=== PATIENT | male | born 1990 | race Caucasian/White ===

== ENCOUNTER 2018-01-24 20:53 | Emergency (ER) | payer OTHER, SELFPAY ==
[2018-01-24 20:55] VITALS: BP 133/80; PULSE 115; RESP 14; TEMP 36.7; O2SAT 98; BMI 27.9
--- NOTE | 2018-01-24 21:04 | EKG12_ITS ---
Test Reason : Blood Pressure : / mmHG Vent. Rate : 107 BPM Atrial Rate : 107 BPM P-R Int : 124 ms QRS Dur : 102 ms QT Int : 338 ms P-R-T Axes : 048 078 026 degrees QTc Int : 451 ms Sinus tachycardia Incomplete right bundle branch block Borderline ECG Confirmed by HOMER MAYS, JUAN ([id number]), food editor VALERIA AYALA ([id number]) on 01/25/2018 10:03:20 AM Referred By: ANDRÉS Confirmed By:JUAN CORONEL MD
--- NOTE | 2018-01-24 21:06 | ED.RN ---
NO OLD EKGS IN MUSE
[2018-01-24] MEDS: 0.9% Normal Saline 1,000 ML 999 ML IV (21:08)
[2018-01-24 21:14] LABS: Absolute Lymphocyte Count 2.53 X10^3/ul (0.83-4.51); Absolute Neutrophil Count 7.3 X10^3/uL (2.0-7.7); Basophil# 0.04 X10^3/uL; Basophil% 0.4 % (0-1); Eosinophil# 0.15 X10^3/uL; Eosinophils% 1.4 % (0-5); Hematocrit 45.6 % (40-54); Hemoglobin 16.5 g/dl (13.0-16.5); Lymphocyte # 2.53 X10^3/ul (4.0); Lymphocyte % 22.8 % (19-41); Mean Corp Hgb Conc 36.2 g/gl (32-36); Mean Corpuscular Hgb 30.4 pg (27.0-32.0); Mean Corpuscular Volume 84.1 fL (80-94); Monocyte# 1.01 X10^3/uL; Monocyte% 9.1 % (0-10); Neutrophil # 7.34 X10^3/uL (2.7-7.7); Neutrophil % 66.2 % (47-70); POSITIVE COUNT NO; POSITIVE DIFFERENTIAL NO; POSITIVE MORPHOLOGY NO; Platelet Count 263 K/mm3 (150-450); RBC Distribution Width CV 12.5 % (11.6-14.6); RBC Distribution Width SD 38.4 fl (35.1-43.9); Red Blood Count 5.42 M/mm3 (4.6-6.2); White Blood Count 11.1 K/mm3 (4.4-11.0)
[2018-01-24 21:23] VITALS: BP 145/99; PULSE 95
[2018-01-24 21:28] LABS: Anion Gap 7 (5-15); BUN 16 mg/dL (7-18); BUN/Creat Ratio 13.4 RATIO (10-20); Calcium,Total 9.3 mg/dL (8.5-10.1); Chloride 104 mmol/L (98-107); Creatinine, Serum 1.19 mg/dL (0.70-1.30); EST Glomerular Filtration Rate 78 mL/min (>60); Est Glom Filt Rate - Afr Amer 94 mL/min (>60); Estimated Creatinine Clearance 87.18 ml/min; Glucose 92 mg/dL (74-106); Potassium 3.3 mmol/L (3.5-5.1); Sodium Level 138 mmol/L (136-145)
--- NOTE | 2018-01-24 21:39 | ED.VISSUMM ---
- ER Visit Summary Date of Service: 01/24/18 Chief Complaint: Dizziness History of Present Illness: The patient is a 27 M presenting for evaluation secondary to an episode of dizziness. 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 He reports that he was heavily exerting himself moving some hoses around from room to room. Patient states that since he was a kid he has had issues with having vomiting episodes with severe exertion. He reports that he started to feel nauseous and vomited 4 times. He reports that he did not have any blood or bile in his emesis. Patient states that following that he started to feel as if his heart was racing and was noted to have a heart rate in the 130s. He states that it was associated with a feeling of lightheadedness. He denies that there is any sort of chest pain. Patient denies any personal or family history of cardiac arrhythmias. He denies any history of stimulant use he drinks 2 cups of coffee in the morning has not had anything for over 12 hours. He denies any recent infectious signs or symptoms. Review of systems otherwise negative. Physical Examination: Vital signs are within normal limits, patient is afebrile. General: Patient is well-nourished well-developed and in no acute distress. Head: Normocephalic, atraumatic Eyes: Pupils equal round and reactive bilaterally, extra occular motion intact bialterally ENT: Moist mucous membranes Neck: Supple, no lymphadenopathy, no JVD, no meningismus CVS: Heart regular rate and rhythm, no murmurs, rubs or gallops, radial pulses 2+ bilaterally Resp: Respirations nondistressed, lung sounds clear bilaterally Abdomen: Soft, nontender, nondistended, no palpable masses, normal bowel sounds Back: Nontender Extremities: Nontender, atraumatic, active full range of motion, no peripheral edema Skin: warm, no rashes, no petechia Neuro: Alert and oriented x 4, CN 2-12 intact, no lateralizing neurological defecits Psyc: Normal affect Test Results: EKG shows sinus rhythm of 107 with normal NE and QTc intervals, no evidence of WPW or Brugada morphology. There is evidence of a incomplete right bundle branch block and no evidence of acute ST or T-segment changes. See unremarkable, chemistry shows very mild decreased potassium 3.3 troponin negative. Emergency Department Course and Treatment: Patient presented with what sounded like a presyncopal event following vomiting. Patient's workup is negative as noted above. His EKG is completely normal. At this point I believe the patient likely had a vagal response to his forceful vomiting. Patient's EKG did demonstrate evidence of an incomplete right bundle branch block which can be normal and healthy young individuals. he does not seem to have any sort of cardiac etiologies or electrolyte etiologies that would preclude him from continuing to participate in his training program. Patient was cleared for return to work. Disposition: Discharge Impression: Presyncope secondary to vagal event This note was generated with [employer] dictation software. It may contain incorrect words, spelling, and punctuation that were not noted in review of the chart prior to signing ED Disposition - Plan for ED Patient: Disposition: Home or Assisted Living Chief Complaint: Dizziness Diagnosis: Pre-syncope Instructions: ED Near Syncope Vasovagal Referrals: [facility] [GROUP OF PHYSICIANS] - As Needed
--- NOTE | 2018-01-24 21:43 | ED.DCSUM_ITS ---
- ER Visit Summary Date of Service: 01/24/18 Chief Complaint: Dizziness History of Present Illness: The patient is a 27 M presenting for evaluation secondary to an episode of dizziness. 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 He reports that he was heavily exerting himself moving some hoses around from room to room. Patient states that since he was a kid he has had issues with having vomiting episodes with severe exertion. He reports that he started to feel nauseous and vomited 4 times. He reports that he did not have any blood or bile in his emesis. Patient states that following that he started to feel as if his heart was racing and was noted to have a heart rate in the 130s. He states that it was associated with a feeling of lightheadedness. He denies that there is any sort of chest pain. Patient denies any personal or family history of cardiac arrhythmias. He denies any history of stimulant use he drinks 2 cups of coffee in the morning has not had anything for over 12 hours. He denies any recent infectious signs or symptoms. Review of systems otherwise negative. Physical Examination: Vital signs are within normal limits, patient is afebrile. General: Patient is well-nourished well-developed and in no acute distress. Head: Normocephalic, atraumatic Eyes: Pupils equal round and reactive bilaterally, extra occular motion intact bialterally ENT: Moist mucous membranes Neck: Supple, no lymphadenopathy, no JVD, no meningismus CVS: Heart regular rate and rhythm, no murmurs, rubs or gallops, radial pulses 2+ bilaterally Resp: Respirations nondistressed, lung sounds clear bilaterally Abdomen: Soft, nontender, nondistended, no palpable masses, normal bowel sounds Back: Nontender Extremities: Nontender, atraumatic, active full range of motion, no peripheral edema Skin: warm, no rashes, no petechia Neuro: Alert and oriented x 4, CN 2-12 intact, no lateralizing neurological defecits Psyc: Normal affect Test Results: EKG shows sinus rhythm of 107 with normal [place] and QTc intervals, no evidence of WPW or Brugada morphology. There is evidence of a incomplete right bundle branch block and no evidence of acute ST or T-segment changes. See unremarkable, chemistry shows very mild decreased potassium 3.3 troponin negative. Emergency Department Course and Treatment: Patient presented with what sounded like a presyncopal event following vomiting. Patient's workup is negative as noted above. His EKG is completely normal. At this point I believe the patient likely had a vagal response to his forceful vomiting. Patient's EKG did demonstrate evidence of an incomplete right bundle branch block which can be normal and healthy young individuals. he does not seem to have any sort of cardiac etiologies or electrolyte etiologies that would preclude him from continuing to participate in his training program. Patient was cleared for return to work. Disposition: Discharge Impression: Presyncope secondary to vagal event This note was generated with [employer] dictation software. It may contain incorrect words, spelling, and punctuation that were not noted in review of the chart prior to signing ED Disposition - Plan for ED Patient: Disposition: Home or Assisted Living Chief Complaint: Dizziness Diagnosis: Pre-syncope Instructions: ED Near Syncope Vasovagal Referrals: [facility] [GROUP OF PHYSICIANS] - As Needed
[2018-01-24 21:55] VITALS: BP 131/74; PULSE 94; RESP 16; O2SAT 98
== END 2018-01-24 21:59 | disposition home or self-care (01) ==
PROVIDERS: Emergency Provider Emergency Medicine
DX: R55 Syncope and collapse (principal)
CPT/HCPCS: 80048; 84484; 85025; 93005; 96360; 99284; J7030; A4216

== ENCOUNTER 2019-06-30 07:00 | Outpatient (RCR) | payer OTHER, SELFPAY ==
--- NOTE | 2019-04-12 14:56 | HP.PTEVAL_ITS ---
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 Date of Evaluation: 04/12/19 Physical Therapist: Juan Hernandez, DPT, OCS, CSCS - Visit Plan Frequency: 1-2x /Week Duration: 4 Months Plan: 1-2x/week for up to 3-4 months as needed to progress per protocol. AAROM to aROM until April then strength progression per protocol - Subjective Findings: Posterior labrum repair surgery by [facility] on 03/02/19. Had trouble with it for 2.5 years due to injuries over the years. Dove for a ball in softball 3 years ago and injured it . Putting off surgery until last February. Surgery went well. In sling with abd wedge except some times walking at home. No exercises yet. Saw doctor yesterdaya nd can start PT. Will be out of sling 04/27 19. Currently no sudden sharp movements or heavy lifting. Sleep is not easy in sling, looking forward to the . Pain is none. no pain since surgery. Sore or stiff with movement. 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 Basic ADLs at home require help, bathing and getting spots on back is challenging, not cooking, not wash dishes. dresses self and bathroom self. Enjoys hunting and shooting guns and four wheelers. Spends day currently hanging out with girlfriend. - Objective PROM R shoulder flexion 125, abd 120, ext rotation 60, IR at 90 abd 60. AROM shoulder R not tested. L shoulder flexiona dna bd 165 adn ext rot 90 and IR 90 at 90 abd. Posture is slightly forward head and elevated R scapula. Incisions healed well. Scapula ROM is full B without pain. Full elbow AROM B. Full wrist ROM B. Good squeeze strength B. Trasnfers and walks I, dons and doffs sling I. - Goals Goal 1:: ST: Full AROM R shoulder per protocol without pain Goal Time Frame: 4-6 Weeks Goal 2:: Initiate strength ex per protocol for R shoulder without incidient Goal Time Frame: 4-6 Weeks Goal 3:: LT goals: Dress and cooka t home without pain or problems Goal Time Frame: 8-12 Weeks Goal 4:: Plan to return to work without limitations. Goal Time Frame: 12-16 Weeks - Rehabilitation Potential Physical Therapy Diagnosis: Weak and limited ROM post surgery. Rehabilitation Potential: Good - Anticipated Interventions Patient/Client Instruction: Educate patient on: Condition, Plan of Care For the Purpose of:: To decrease pain, To increase ROM, To improve muscle performance and motor function, To increase tolerance to activity/condition/position, To improve ability of physical actions for home/community/work/leisure Therapeutic Exercise to Include: Strength training, Postural training, Flexibilty training, Passive ROM, Active ROM For the Purpose of:: To increase ROM, To improve muscle performance and motor function, To increase tolerance to activity/condition/position, To improve ability of physical actions for home/community/work/leisure Manual Therapy Techniques to Include: Passive ROM For the Purpose of:: To increase ROM Cryotherapy (ice pack, ice massage): Yes For the Purpose of:: To decrease pain, To decrease swelling/inflammation Thank you for the opportunity to evaluate your patient. For Medicare and Medicare HMO plans, please review the plan of care and approve it. It will need to be FAXED BACK to us at [phone] for Medicare purposes. For Medicare only, by signing this I certify the plan of care. Please let me know if there are questions or concerns regarding this plan of care. Physician Signature: Date:
--- NOTE | 2019-05-09 13:45 | HP.PTREVAL ---
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 Please see the progress note below for an update on the physical therapy plan of care! Subjective: Stiff and sore a little more at the end range. No other pain. To doctor next week. Objective/Function: Full aROM flexion,abd, ext rot, IR with just slight transient tightness at end range. Horiz add appropriately limited. Weakness obvious in flexiona dn abduction but no pain with exercises. Overall doing wella nd emphasized slow progression without soreness. Plan Plan: f/u after doctor visit next week. Progress to GTB if able and OH stabs in mid range. Plan weekly to continue progression of HEP per initial POC unless otherwise instructed by doctor. Goals Goal 1:: ST: Full AROM R shoulder per protocol without pain Goal Time Frame: 4-6 Weeks Goal Progress: Progressing Goal 2:: Initiate strength ex per protocol for R shoulder without incidient Goal Time Frame: 4-6 Weeks Goal 3:: LT goals: Dress and cooka t home without pain or problems Goal Time Frame: 8-12 Weeks Goal 4:: Plan to return to work without limitations. Goal Time Frame: 12-16 Weeks Anticipated Interventions Patient/Client Instruction: Educate patient on: Condition, Plan of Care For the Purpose of:: To decrease pain, To increase ROM, To improve muscle performance and motor function, To increase tolerance to activity/condition/position, To improve ability of physical actions for home/community/work/leisure Therapeutic Exercise to Include: Strength training, Postural training, Flexibilty training, Passive ROM, Active ROM For the Purpose of:: To increase ROM, To improve muscle performance and motor function, To increase tolerance to activity/condition/position, To improve ability of physical actions for home/community/work/leisure Manual Therapy Techniques to Include: Passive ROM For the Purpose of:: To increase ROM Cryotherapy (ice pack, ice massage): Yes For the Purpose of:: To decrease pain, To decrease swelling/inflammation Please do not hesitate to contact me at [phone] by phone or if you have questions or concerns regarding this new plan of care! Sincerely, Juan Hernandez, DPT, OCS, CSCS
--- NOTE | 2019-06-01 12:48 | HP.PTREVAL ---
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 Please see the progress note below for an update on the physical therapy plan of care! 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 HEP going well. Objective/Function: Full aROM including horiz adduction today although it feels tight. Full flexion and rotations. Strength in IR/ER 5/5, bi and tri 5/5, flexiona dn abduction 4+/5 R side.No pain. 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 check flexion and abduction for release next sessiona nd answer any ex questions. Good prognosis Goals Goal 1:: ST: Full AROM R shoulder per protocol without pain Goal Time Frame: 4-6 Weeks Goal Progress: Goal Met Goal 2:: Initiate strength ex per protocol for R shoulder without incidient Goal Time Frame: 4-6 Weeks Goal Progress: Goal Met Goal 3:: LT goals: Dress and cooka t home without pain or problems Goal Time Frame: 8-12 Weeks Goal Progress: Goal Met Goal 4:: Plan to return to work without limitations. Goal Time Frame: 12-16 Weeks Goal Progress: on target, appropriate. Anticipated Interventions Patient/Client Instruction: Educate patient on: Condition, Plan of Care For the Purpose of:: To decrease pain, To increase ROM, To improve muscle performance and motor function, To increase tolerance to activity/condition/position, To improve ability of physical actions for home/community/work/leisure Therapeutic Exercise to Include: Strength training, Postural training, Flexibilty training, Passive ROM, Active ROM For the Purpose of:: To increase ROM, To improve muscle performance and motor function, To increase tolerance to activity/condition/position, To improve ability of physical actions for home/community/work/leisure Manual Therapy Techniques to Include: Passive ROM For the Purpose of:: To increase ROM Cryotherapy (ice pack, ice massage): Yes For the Purpose of:: To decrease pain, To decrease swelling/inflammation Please do not hesitate to contact me at [phone] by phone or if you have questions or concerns regarding this new plan of care! Sincerely, Juan Hernandez, DPT, OCS, CSCS
--- NOTE | 2019-06-30 07:30 | HP.PTDCSUM ---
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 Discharge Date: Please see the following information for a summary of their discharge status. Subjective: Strength is improving. 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 Sleeping OK. Normal activities at home. 90% better at home, 10% is strength. Picking kids up still at deficit slightly. % Improvement: 90 Objective/Function: Full aROM R shoulder. Strength 5/5 in R shouulder except elevated ext rotation at 4+. Push ups easily. No pain or cracking. Pt happy with progress adn ready to be done with PT and continue strengthening at home. Goal 1:: ST: Full AROM R shoulder per protocol without pain Goal Progress: Goal Met Goal 2:: Initiate strength ex per protocol for R shoulder without incidient Goal Progress: Goal Met Goal 3:: LT goals: Dress and cooka t home without pain or problems Goal Progress: Goal Met Goal 4:: Plan to return to work without limitations. 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 If there are questions or concerns regarding this patient's physical therapy, please feel free to call me at [phone]. Thank you for the referral of this patient. Sincerely, Juan Hernandez, DPT, OCS, CSCS
== END 2019-06-30 19:00 | disposition home or self-care (01) ==
LOC: PT 07:00
DX: M25.311 Other instability, right shoulder (principal)
CPT/HCPCS: 97110; 97161; 97164; 97530

== ENCOUNTER 2020-01-13 16:45 | Emergency (ER) | payer OTHER, SELFPAY ==
[2020-01-13 16:46] VITALS: BP 148/90; PULSE 99; RESP 18; TEMP 36.2; O2SAT 99; BMI 29.0
--- NOTE | 2020-01-13 16:53 | CT_ITS ---
STUDY: CT BRAIN WITHOUT CONTRAST REASON FOR EXAM: Male, 29 years old. HEAD TRAUMA RADIATION DOSAGE (If Supplied By Facility): CTDIvol = ( 44.99 ) mGy, DLP = ( 779.24 ) mGycm TECHNIQUE: Transaxial CT imaging of the brain was performed without administration of intravenous contrast material. Individualized dose optimization techniques were used for this CT. COMPARISON: No relevant priors. FINDINGS: Normal soft tissue structures. Normal calvarium. Normal size ventricles and extra-axial spaces for the patient''s age. Normal white matter tracts of the cerebral hemispheres. Normal basal ganglia and thalami. Normal brainstem. Normal cerebellum. There is no intracranial hemorrhage. There are no findings of an acute ischemic infarction. Normal visualized paranasal sinuses. CT/Brain/Head without Contrast IMPRESSION: No fracture or hemorrhage. Electronically Signed: Joey Prater MD at 17:24 EDT Tel , Service support ,
--- NOTE | 2020-01-13 17:28 | ED.DCSUM_ITS ---
- ER Visit Summary Date of Service: 01/13/20 Chief Complaint: [Head injury] History of Present Illness: The patient is a 29 M [presents to the emergency department with a head injury that occurred today. Patient states that he was using a post bobcat driver/labor when he accidentally struck himself in the head with it. Patient denies loss of consciousness. Patient did have some blurry vision and some nausea initially. Currently complains of a significant headache. He has had no vomiting. He denies any dizziness. Patient unsure of his last tetanus. He did sustain laceration to his scalp.] Physical Examination: [HEENT-PERRLA, EOMI. Cranial nerves II through XII grossly intact. TMs clear. Mucous membranes moist. No adenopathy. Patient has a 3 cm laceration to the posterior occiput that is well approximated. No bony step-offs noted. No C-spine tenderness on palpation. Cardiovascular-regular rate and rhythm without murmur or ectopy Lungs-clear to auscultation, chest wall stable without crepitus or subcu emphysema Abdomen-normoactive bowel sounds, soft, nontender, no rebound or rigidity, no peritoneal signs. Extremities-intact ?4, normal range of motion, normal pulses, atraumatic] Test Results: [CT scan of the brain showed no acute disease process.] Emergency Department Course and Treatment: [Laceration repair-wound sterilely draped and prepped. Wound cleansed with Shur-Clens irrigated copious saline. 1% lidocaine used anesthetize the area locally with a total of 5 cc used. Using 4-0 nylon a total of 3 single ruptured sutures placed with good wound edge approximation. Patient tolerated procedure well.] Treatment Plan: [Follow-up with primary care physician in 10 days for suture removal. Patient advised to return if increased redness, swelling, purulent drainage, or condition should worsen anyway.] Disposition: [Discharged home stable condition] Impression: [Closed head injury Scalp laceration 3 cm-simple repair] This note was generated with [employer] dictation software. It may contain incorrect words, spelling, and punctuation that were not noted in review of the chart prior to signing ED Disposition - Plan for ED Patient: Referrals: Obi Rodriguez MD [Primary Care Provider] -
--- NOTE | 2020-01-13 17:30 | DCINST.ED_ITS ---
ED Disposition - Plan for ED Patient: Instructions: ED Head Injury Adult, ED Laceration Scalp Sutures or [place] Referrals: Obi Rodriguez MD [Primary Care Provider] - 10 Day for suture removal
[2020-01-13] MEDS: Diphth,Pertuss(Acell),Tet Vac 0.5 ML Vial IM (18:00)
[2020-01-13 18:08] VITALS: RESP 16
== END 2020-01-13 18:26 | disposition home or self-care (01) ==
PROVIDERS: Emergency Provider Emergency Medicine; PCP Family Medicine
DX: S01.01XA Laceration without foreign body of scalp, initial encounter (principal); Z72.0 Tobacco use; W26.8XXA Contact with other sharp object(s), not elsewhere classified, initial encounter; Y93.89 Activity, other specified; Y92.89 Other specified places as the place of occurrence of the external cause; Y99.8 Other external cause status
CPT/HCPCS: 12002; 70450; 90715; 99281; 99284

== ENCOUNTER 2020-10-03 06:10 | Emergency (ER) | payer OTHER, SELFPAY ==
[2020-10-03 06:11] VITALS: BP 131/78; PULSE 121; RESP 13; TEMP 36.6; O2SAT 99; BMI 27.0
--- NOTE | 2020-10-03 06:19 | EKG12_ITS ---
Test Reason : CP Blood Pressure : / mmHG Vent. Rate : 122 BPM Atrial Rate : 122 BPM P-R Int : 120 ms QRS Dur : 092 ms QT Int : 318 ms P-R-T Axes : 060 092 023 degrees QTc Int : 453 ms Sinus tachycardia Otherwise normal ECG When compared with ECG of 24-JAN-2018 21:02, Incomplete right bundle branch block is no longer Present Confirmed by ZACH MAYS, KIRK ([id number]), school photograph editor GIDEON PACKER ([id number]) on 10/11/2020 9:44:37 AM Referred By: MR Confirmed By:KIRK ESRRANO MD
[2020-10-03 06:23] LABS: Absolute Lymphocyte Count 2.71 X10^3/uL (0.83-4.51); Absolute Neutrophil Count 4.9 X10^3/uL (2.0-7.7); Basophil# 0.07 X10^3/uL; Basophil% 0.8 % (0-1); Eosinophil# 0.34 X10^3/uL; Eosinophils% 3.8 % (0-5); Hematocrit 49.5 % (40-54); Hemoglobin 17.2 g/dL (13.0-16.5); Lymphocyte # 2.71 X10^3/ul (0.83-4.51); Mean Corp Hgb Conc 34.7 g/dL (32-36); Mean Corpuscular Hgb 30.4 pg (27.0-32.0); Mean Corpuscular Volume 87.6 fL (80-94); Mean Platelet Vol. 8.6 fl (6.2-12.0); Monocyte# 0.99 X10^3/uL; NRBC Flagged by Analyzer 0 % (0-5); Neutrophil % 54.2 % (47-70); Platelet Count 273 K/mm3 (150-450); RBC Distribution Width CV 11.9 % (11.6-14.6); RBC Distribution Width SD 38.5 fl (35.1-43.9); Red Blood Count 5.65 M/mm3 (4.6-6.2)
--- NOTE | 2020-10-03 06:32 | EDS_ITS ---
HPI History of Present Illness Chief Complaint: Palpitations Narrative Narrative: Patient presenting for evaluation secondary to palpitations. Patient does report that he has had prior similar episodes in the past. Patient states that tonight he was at rest and had a sudden onset of palpitations. States that this lasted for around an hour and a half and then spontaneously resolved. Patient states that there were no exacerbating relieving factors associated with this, it was a continuous type palpitation feeling with a little bit of chest pain and tingling going down his arms. It was also associated with a headache. Patient states that he is never really had a complete work-up for this. Patient does report that he has a significant amount of caffeine in a day, typically drinks about a pot of coffee but his last caffeine was around 12 hours ago. He denies any other stimulant use. He denies any abnormal weight change changes in appetite or heat or cold intolerance. No neck pain associated with this. No recent travel or surgery. No history of DVT or PE. Review of systems otherwise negative. [facility] Medical History Labral tear of shoulder Home Medications acyclovir 400 mg PO BID 01/13/20 [History Last Taken Unknown] Allergy/AdvReac Type Severity Reaction Status Date / Time No Known Allergies Allergy Verified 10/03/20 06:13 Social History Smoking Status: Current every day smoker tobacco type: cigarettes and smokeless tobacco ROS ROS ED Constitutional Constitutional ED: Denies fever(s) Eyes Eyes: Denies change in vision ENT ENT ED: Denies rhinorrhea or sore throat Cardiovascular Cardiovascular: Reports as per HPI, chest pain and palpitations Respiratory/Chest Respiratory/Chest: Denies cough, dyspnea or dyspnea on exertion Gastrointestinal Gastrointestinal: Denies abdominal pain, nausea or vomiting Genitourinary Genitourinary ED: Denies dysuria Musculoskeletal Musculoskeletal: Denies myalgias or neck pain Integumentary Denies rash Neurologic Neurologic: Denies headache(s), paresthesias or weakness Psychiatric Psychiatric: Denies depression Endocrine Endocrinology: Denies polydipsia or polyuria Hematologic/Lymphatic Hematologic/Lymphatic: Denies easy bleeding or easy bruising Allergic/Immunologic Allergic/Immunologic ED: Denies urticaria EXAM Physical Exam Const Vital Signs: 10/03/20 06:11 10/03/20 06:21 Temperature 97.8 F Temperature Source Temporal Pulse Rate 121 H Respiratory Rate 13 Blood Pressure 131/78 H Blood Pressure Mean 95 Pulse Ox 99 Oxygen Delivery Method Room Air Positive well nourished and well developed General Appearance ED: well developed and NAD HEENT Reports moist mucous membranes HEENT Narrative: Thyroid is nontender no palpable masses normocephalic and atraumatic Eyes EOMs intact bilaterally Neck no lymphadenopathy, supple and no JVD Chest Wall inspection of chest normal and palpation of chest normal Chest Narrative: No evidence of vesicular rash Resp normal respiratory effort and clear to auscultation bilaterally Auscultation: Negative for rales, rhonchi or wheezes Cardio regular rhythm, S1 normal heart sound, S2 normal heart sound and no murmurs Rate: tachycardic Peripheral Pulses: radial pulses present and posterior tibial pulses present GI normal to inspection, nondistended, normoactive bowel sounds, soft to palpation and non-tender Extremity normal to inspection Extremity Narrative: Calves are supple no palpable cord General Extremety ED: Negative for edema or tenderness General Extremity: Negative for edema Neuro oriented x3 and no sensory deficits noted Sensorium / Orientation: awake and alert Psych mental status grossly normal Skin no rashes or lesions noted MDM MDM MDM Narrative Medical decision making narrative: Patient presented secondary to palpitations. By my review of the patient's rhythm strip I think that he likely was having paroxysmal atrial fibrillation, but he was in a sinus rhythm his entire time in the emergency department. Work-up shows the patient to have no leukocytosis mild elevation of his hemoglobin at 17 normal renal function normal TSH and a normal troponin and a normal magnesium. Patient remained asymptomatic in the emergency department. I discussed patient's case with cardiology, Dr. Munoz, who recommended discharge with a Holter monitor and follow-up with cardiology. Patient was informed of this. Patient does drink a decent amount of caffeine, I recommended that he start trying to decrease that as that may be a precipitating factor to his arrhythmia. Patient was discharged in stable condition. Additionally the patient did tell me that these episodes typically happen upon awakening. I asked the patient significant other if he has a history of snoring, and she does state that he has severe snoring. This potentially could even be associated with an element of hypoxia from sleep apnea that precipitates his paroxysmal atrial fibrillation. I informed him that he likely should tell cardiology about this when he follows up. Lab Data Labs: Laboratory Results - last 24 hr 10/03/20 10/03/20 06:18 06:18 WBC 9.0 RBC 5.65 Hgb 17.2 H Hct 49.5 MCV 87.6 MCH 30.4 MCHC 34.7 RDW Std Deviation 38.5 RDW Coeff of Anny 11.9 Plt Count 273 MPV 8.6 Immature Gran % (Auto) 0.200 Neut % (Auto) 54.2 Lymph % (Auto) 30.0 [place] % (Auto) 11.0 H Eos % (Auto) 3.8 Baso % (Auto) 0.8 Absolute Neuts (auto) 4.9 Absolute Lymphs (auto) 2.71 Nucleated RBC % 0 Sodium 141 Potassium 3.5 Chloride 105 Carbon Dioxide 30.0 Anion Gap 6 BUN 11 Creatinine 1.04 Estim Creat Clear Calc 101.39 Est GFR (MDRD) Af Amer 108 Est GFR (MDRD) Non-Af 89 BUN/Creatinine Ratio 10.6 Glucose 103 Calcium 9.1 Magnesium 2.1 Troponin I High Sens < 3.0 L TSH 2.32 Rhythm Strip Rhythm Strip: A-fib (Narrow complex slightly irregular rate of 183) EKG Initial EKG: Attestation: I personally reviewed and interpreted this EKG as follows: (Sinus rhythm of 122, tachycardic, normal IN and QTc intervals isoelectric ST segments normal T waves.) Discharge Plan Triage Chief Complaint: Palpitations ED Provider: Kelechi Presley Dx/Rx/DC Orders Clinical Impression: Paroxysmal A-fib Instructions: ED AFIB Prescriptions: No Action acyclovir 200 MG capsule 400 mg PO BID RF: 0 Primary Care Provider: Obi Rodriguez Referrals: Enrique Munson MD [STAFF PHYSICIAN] - 2 Days Obi Rodriguez MD [Primary Care Provider] - Disposition Disposition: Home, Self Care
[2020-10-03 06:53] LABS: Anion Gap 6 (5-15); BUN 11 mg/dL (7-18); BUN/Creat Ratio 10.6 RATIO (10-20); Calcium,Total 9.1 mg/dL (8.5-10.1); Chloride 105 mmol/L (98-107); Creatinine, Serum 1.04 mg/dL (0.70-1.30); EST Glomerular Filtration Rate 89 mL/min (>60); Est Glom Filt Rate - Afr Amer 108 mL/min (>60); Estimated Creatinine Clearance 101.39 ml/min; Glucose 103 mg/dL (74-106); Magnesium 2.1 mg/dL (1.6-2.6); Potassium 3.5 mmol/L (3.5-5.1); Sodium Level 141 mmol/L (136-145); Thyroid Stim Hormone (TSH) 2.32 uIU/mL (0.358-3.74); Troponin-I HS < 3.0 pg/mL (3.0-78.5)
[2020-10-03 07:37] VITALS: BP 114/62; PULSE 85; RESP 15; O2SAT 100
== END 2020-10-03 07:39 | disposition home or self-care (01) ==
PROVIDERS: Emergency Provider Emergency Medicine; PCP Family Medicine
DX: I48.0 Paroxysmal atrial fibrillation (principal); F17.210 Nicotine dependence, cigarettes, uncomplicated
CPT/HCPCS: 80048; 83735; 84443; 84484; 85025; 93005; 99284; A4216

== ENCOUNTER → 2020-10-03 07:49 | Outpatient (CLI) | payer OTHER, SELFPAY ==
[2020-10-03 06:11] VITALS: BMI 27.0
== END ==
PROVIDERS: PCP Family Medicine; Visit Provider Internal Medicine Interventional Cardiology
DX: R00.2 Palpitations (principal)
CPT/HCPCS: 93225; 93226

== ENCOUNTER → 2020-10-17 12:56 | Outpatient (CLI) | payer OTHER, SELFPAY ==
[2020-10-09 12:41] VITALS: BMI 24.9
--- NOTE | 2020-10-17 13:02 | ECHOD_ITS ---
Reason For Study: A. fib Procedure This was a 2D Doppler, Color Flow transthoracic echocardiogram. Exam performed in department. Left Ventricle Normal LV size. Left ventricular systolic function is normal. The estimated ejection fraction is 60 %. Normal diastology for age. No regional wall motion abnormalities noted. Right Ventricle Normal RV size. Normal systolic function. Atria Normal left atrium. Normal right atrium. Mitral Valve Normal mitral valve. Tricuspid Valve Normal tricuspid valve. Mild tricuspid valve insufficiency. Aortic Valve Normal aortic valve. Trisinus/trileaflet aortic valve. Pulmonic Valve Normal pulmonic valve. Great Vessels Normal aortic root. The pulmonary artery is normal size. Normal inferior vena cava. Pericardium/Pleural No pericardial effusion. MMode/2D Measurements & Calculations LVIDd: 4.6 cm IVSd: 0.83 cm Ao root diam: 2.9 cm LVIDs: 3.1 cm LVPWd: 0.88 cm RVDd: 3.5 cm FS: 32.8 % LAV(MOD-bp): 36.4 ml LVAd ap4: 31.4 cm2 LVAd ap2: 33.0 cm2 LAV(MOD-bp) Indexed: 19.3 ml/m2 LVLd ap4: 8.6 cm LVLd ap2: 8.4 cm LAV(MOD-sp2): 38.3 ml EDV(MOD-sp4): 93.3 ml EDV(MOD-sp2): 106.9 ml LAV(MOD-sp4): 34.5 ml EDV(sp4-el): 96.8 ml EDV(sp2-el): 109.8 ml LVAs ap4: 18.0 cm2 LVAs ap2: 17.7 cm2 LVLs ap4: 6.9 cm LVLs ap2: 7.5 cm ESV(MOD-sp4): 38.8 ml ESV(MOD-sp2): 35.7 ml ESV(sp4-el): 39.8 ml ESV(sp2-el): 35.5 ml EF(MOD-sp4): 58.4 % EF(MOD-sp2): 66.6 % EF(sp4-el): 58.8 % SV(MOD-sp4): 54.5 ml SV(MOD-sp2): 71.2 ml SV(sp4-el): 57.0 ml LA dimension(2D): 2.9 cm LA A4 area: 13.8 cm2 RA A4 area: 13.7 cm2 Doppler Measurements & Calculations MV E max royce: 86.8 cm/sec Lat Peak E' Royce: 15.3 cm/sec Med Peak E' Royce: 15.8 cm/sec MV A max royce: 38.0 cm/sec E/E' lat: 5.7 E/E' med: 5.5 MV E/A: 2.3 Ao V2 max: 141.0 cm/sec LV V1 max: 113.8 cm/sec PA V2 max: 81.8 cm/sec Ao max P.0 mmHg LV V1 max P.2 mmHg TR max royce: 204.7 cm/sec TR max P.8 mmHg ECHO/Echo Complete Interpretation Summary Normal LV size. Left ventricular systolic function is normal. The estimated ejection fraction is 60 %. Mild tricuspid valve insufficiency. Structurally normal valves. Ordering Physician: Silas Elliott Referring Physician: Obi Rodriguez Performed By: Pretty Kraft RDCS
== END ==
PROVIDERS: PCP Family Medicine; Referring Provider Internal Medicine Cardiovascular Disease; Visit Provider Internal Medicine Cardiovascular Disease
DX: I48.91 Unspecified atrial fibrillation (principal); I48.92 Unspecified atrial flutter
CPT/HCPCS: 93306

== ENCOUNTER 2021-01-29 21:54 | Emergency (ER) | payer OTHER, SELFPAY ==
[2021-01-29 21:56] VITALS: BP 142/97; PULSE 82; RESP 16; TEMP 35.9; O2SAT 99; BMI 25.8
[2021-01-29 22:55] VITALS: RESP 16
[2021-01-29 23:00] VITALS: RESP 16
--- NOTE | 2021-01-29 23:52 | EDS_ITS ---
HPI HPI - Psych History of Present Illness Chief Complaint: Mental Health Informant: patient Onset/Context/Timing Onset: Month(s) Context: Sudden Onset Conflict: Family Timing: Continuous and Waxes and wanes Current Severity: Mild Maximum Severity: Severe Worsened by: Situational factors Relieved by: Nothing Associated Symptoms Associated Symptoms - Psych: Positive for Depressed, Change in Eating, Change in sleeping, Decreased Interest and Suicidal Thoughts; Negative for Guilt, Decreased Concentration, Hopelessness, Easily distracted, Grandiosity, Flight of Ideas, Increased activity, Pressured Speech, Agitated, Angry, Hostile, Threatening, Confusion, Paranoia, Visual Hallucinations and Auditory Hallucinations Specific plan (suicidal thought): No specific plan. When pressed states he would wreck his car or shoot hims Narrative Narrative: Patient is a 30-year-old male who has been engaged for 2 years. He and his fianc?e have a house together. She has 4 kids. He claims that his parents have taken her side. He works multiple jobs. He has had problems with alcohol use recently and admits to 6-8 beers per day. He does have access to a gun which is in a safe. A friend who has known him for some time and is a elevated work platform operator brought him in. He states he will give the gun to his friend. Another friend is willing to stay with him. He has no future intent. He states he is hit rock bottom and he knows he needs help. Last time he was in counseling was 2013. He is presently on no antipsychotic medication or antidepressant medication. He feels he has a history of depression and anxiety. He does have history of PSVT and atrial fibrillation. He has been compliant with his medication. He has had no problems at work as far as interaction or performance. He does admit to problems with sleep eating stress etc. Prior similar symptoms: Yes Recent Illness/Hospitalization: No PFSH PFS Medical History Atrial fibrillation with rapid ventricular response (10/03/20) Daytime hypersomnolence Incomplete right bundle branch block Labral tear of shoulder Nicotine dependence Home Medications acyclovir 400 mg PO BID 01/13/20 [History Last Taken Unknown] flecainide 100 mg tablet 100 mg PO Q12H #30 tab 10/09/20 [Rx Last Taken Unknown] metoprolol succinate 25 mg tablet,extended release 24 hr 25 mg PO DAILY #90 tab 10/09/20 [Rx Last Taken Unknown] paroxetine HCl [Paxil CR] 12.5 mg PO DAILY #30 tab 01/30/21 [Rx Last Taken Unknown] Allergy/AdvReac Type Severity Reaction Status Date / Time No Known Allergies Allergy Verified 01/21/21 12:22 Family History Grandmother Heart disease SSS PPM CAD (coronary artery disease), Onset Age: 50 CABG Grandfather CAD (coronary artery disease), Onset Age: 60 Social History (Updated 01/29/21 @ 23:[address] Maury Encarnacion MD) household members: none Smoking Status: Current every day smoker tobacco type: cigarettes and smokeless tobacco Smokeless tobacco user: chewing tobacco alcohol intake: current alcohol intake frequency: a few times a month Alcohol type: beer substance use type: does not use caffeine: Yes Type: coffee Number of servings: 10 ROS ROS ED Constitutional Constitutional ED: Reports weight loss; Denies chills, fever(s), subjective or sweats Eyes Eyes: Denies blurry vision, change in vision or diplopia ENT ENT ED: Denies ear pain, rhinorrhea or sore throat Cardiovascular Cardiovascular: Denies chest pain, palpitations or racing heartbeat Respiratory/Chest Respiratory/Chest: Denies cough, dyspnea or dyspnea on exertion Gastrointestinal Gastrointestinal: Reports nausea; Denies abdominal pain, diarrhea or vomiting Musculoskeletal Musculoskeletal: Denies arthralgias, myalgias or neck pain Integumentary Denies rash Neurologic Neurologic: Denies headache(s), paresthesias or weakness Psychiatric Psychiatric: Reports anxiety, depression, suicidal thoughts and other Details: Presently has no suicidal thoughts. ; Denies suicidal ideation Hematologic/Lymphatic Hematologic/Lymphatic: Denies easy bleeding or easy bruising EXAM Physical Exam Const Vital Signs: 01/29/21 21:56 01/29/21 22:55 01/29/21 23:00 Temperature 96.7 F L Temperature Source Temporal Pulse Rate 82 Respiratory Rate 16 16 16 Blood Pressure 142/97 H Blood Pressure Mean 112 Pulse Ox 99 Oxygen Delivery Method Room Air Positive well nourished and well developed General Appearance ED: well developed and NAD; Negative for pallor HEENT Reports moist mucous membranes normocephalic and atraumatic Eyes PERRL and EOMs intact bilaterally Neck no lymphadenopathy, supple and no JVD Resp normal respiratory effort and clear to auscultation bilaterally Cardio S1 normal heart sound, S2 normal heart sound and no murmurs Rate: regular rate Rhythm: regular rhythm GI non-tender and non-distended Auscultation: normoactive bowel sounds Palpation: soft Neuro oriented x3, CN's II-XII intact bilaterally and no sensory deficits noted Sensorium / Orientation: alert Motor Exam: strength 5/5 throughout Psych thought process normal, cooperative, denies hallucinations and denies homicidal ideation; Negative for denies suicidal ideation Appearance: grossly normal, appropriate and well kempt Attitude: calm and withdrawn Activity / Motor Behavior: psychomotor slowing; Negative for psychomotor agitation Speech: slow Mood & Affect: depressed, sad and flat affect Thought Process: normal thought process Thought Content: No homicidality, No phobia(s), No delusion(s), No hallucination(s), No derealization, No depersonalization, No rumination(s), No compulsion(s) and No obsession(s) Attention / Concentration: attention grossly intact Memory / Cognition: memory grossly intact Insight: fair Judgement: fair Skin General Skin Exam: Negative for jaundice or pallor Lesions: no lesions Rashes: no rashes MDM MDM MDM Narrative Medical decision making narrative: Patient with depression. He has no future intent. He wants and realized he needs to talk to a counselor. He is willing to start medication. Spoke with the structural steel worker from crisis center. She will set up an appointment for him. She will contact him in the morning with a time. Plan is to start on Paxil. He does not wish to be started on Zoloft. He states he felt funny when he took that many years ago. Discharge Plan Triage Chief Complaint: Mental Health ED Provider: Maury Encarnacion Dx/Rx/DC Orders Clinical Impression: Depression, Suicidal thoughts Instructions: ED Depression Prescriptions: New paroxetine HCl [Paxil CR] 12.5 mg tablet extended release 24 hr 12.5 mg PO DAILY Qty: 30 RF: 0 No Action metoprolol succinate [Toprol XL] 25 mg tablet extended release 24 hr 25 mg PO DAILY Qty: 90 RF: 3 flecainide 100 mg tablet 100 mg PO Q12H Qty: 30 RF: 0 acyclovir 200 MG capsule 400 mg PO BID RF: 0 Primary Care Provider: Obi Rodriguez Referrals: Counseling,Center [GROUP OF PHYSICIANS] - As soon as possible Obi Rodriguez MD [Primary Care Provider] - Activity Restrictions/Additional Instructions: The counseling center will call you with an appointment tomorrow morning. Disposition Disposition: Home, Self Care
[2021-01-30] MEDS: PARoxetine CR 12.5 MG Tablet PO (00:20)
[2021-01-30 00:22] VITALS: RESP 18
== END 2021-01-30 00:23 | disposition home or self-care (01) ==
PROVIDERS: Emergency Provider Emergency Medicine; PCP Family Medicine
DX: F32.A Depression, unspecified (principal); R45.851 Suicidal ideations; I48.91 Unspecified atrial fibrillation; F17.210 Nicotine dependence, cigarettes, uncomplicated; Z79.899 Other long term (current) drug therapy
CPT/HCPCS: 99283

== ENCOUNTER 2021-07-04 09:36 | Emergency (ER) | payer OTHER, SELFPAY ==
[2021-07-04 09:37] VITALS: BP 117/86; PULSE 97; RESP 18; TEMP 37.3; O2SAT 97; BMI 27.3
--- NOTE | 2021-07-04 10:03 | RAD_ITS ---
STUDY: X-RAY CHEST REASON FOR EXAM: Male, 30 years old. Cough and shortness of breath. Generalized body aches. TECHNIQUE: PA and lateral views of the chest. COMPARISON: None. FINDINGS: Hyperinflation. The lungs are clear. There is no demonstrated pleural abnormality. Normal size heart. Normal mediastinum and van. Normal visualized pulmonary arteries. Normal visualized aortic arch and descending thoracic aorta. Normal visualized thoracic spine. Normal visualized ribs, clavicles, and shoulders. There is no demonstrated abnormality of the visualized soft tissue structures of the upper abdomen. RAD/Chest PA and Lateral IMPRESSION: Normal x-ray examination of the chest. Electronically Signed: Raj Falk MD at 10:33 EDT ,
--- NOTE | 2021-07-04 10:04 | EX.ED.DYSGE1 ---
HPI History of Present Illness Chief Complaint: Cough Informant: patient Narrative Narrative: Productive cough starting today. Diagnosed with influenza 3 days ago symptomatic 4 days ago. Had fevers myalgias symptoms from that is subsiding. Occasional wheezing no history of asthma. No vomiting or diarrhea. 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 History of paroxysmal A. fib and SVT on metoprolol. He states diagnosed at urgent care, treated symptomatically. Nonvaccinated for influenza this year. PFSH PFSH Medical History Atrial fibrillation with rapid ventricular response (10/03/20) Daytime hypersomnolence Incomplete right bundle branch block Labral tear of shoulder Nicotine dependence Home Medications acyclovir 400 mg PO BID 01/13/20 [History Last Taken Unknown] flecainide 100 mg tablet 100 mg PO Q12H #30 tab 10/09/20 [Rx Last Taken Unknown] metoprolol succinate 25 mg tablet,extended release 24 hr 25 mg PO DAILY #90 tab 10/09/20 [Rx Last Taken Unknown] paroxetine HCl [Paxil CR] 12.5 mg PO DAILY #30 tab 01/30/21 [Rx Last Taken Unknown] benzonatate 200 mg PO TID PRN PRN #20 cap 07/04/21 [Rx Last Taken Unknown] Allergy/AdvReac Type Severity Reaction Status Date / Time No Known Allergies Allergy Verified 01/21/21 12:22 Family History Grandmother Heart disease SSS PPM CAD (coronary artery disease), Onset Age: 50 CABG Grandfather CAD (coronary artery disease), Onset Age: 60 Social History household members: none Smoking Status: Current every day smoker tobacco type: cigarettes and smokeless tobacco Smokeless tobacco user: chewing tobacco alcohol intake: current alcohol intake frequency: a few times a month Alcohol type: beer substance use type: does not use caffeine: Yes Type: coffee Number of servings: 10 ROS ROS ED Constitutional Constitutional ED: Denies chills, fever(s) or sweats Eyes Eyes: Denies change in vision ENT ENT ED: Denies dysphagia or sore throat Cardiovascular Cardiovascular: Denies chest pain, leg edema, palpitations or racing heartbeat Respiratory/Chest Respiratory/Chest: Reports cough; Denies dyspnea or dyspnea on exertion Gastrointestinal Gastrointestinal: Denies abdominal pain, diarrhea, nausea or vomiting Genitourinary Genitourinary ED: Denies dysuria, hematuria or urinary frequency Musculoskeletal Musculoskeletal: Denies back pain, extremity pain or neck pain Integumentary Denies rash or wounds Neurologic Neurologic: Denies headache(s), paresthesias or weakness EXAM Physical Exam Const Vital Signs: 07/04/21 09:37 Temperature 99.2 F H Temperature Source Temporal Pulse Rate 97 Respiratory Rate 18 Blood Pressure 117/86 H Blood Pressure Mean 96 Pulse Ox 97 Oxygen Delivery Method Room Air Positive well nourished and well developed General Appearance ED: well developed and NAD HEENT Reports moist mucous membranes normocephalic and atraumatic Eyes PERRL, EOMs intact bilaterally and conjunctivae normal General Eye ED: Yes normal appearance of both eyes Neck no lymphadenopathy and supple General: Negative for tenderness Chest Wall Chest: Negative for tenderness Resp normal respiratory effort and normal air movement Resp Narrative: Faint expiratory wheeze noted upper lobes. No distress. Effort and Inspection: symmetric chest movement; Negative for respiratory distress Cardio regular rate, regular rhythm and no murmurs Peripheral Pulses: pulses 2+ throughout GI normal to inspection, nondistended, normoactive bowel sounds and non-tender Palpation: Negative for guarding or rebound tenderness present Back/Spine no CVA tenderness and no thoracic nor lumbar tenderness Extremity normal to inspection General Extremety ED: Negative for edema or tenderness General Extremity: Negative for edema Neuro oriented x3 and no sensory deficits noted Sensorium / Orientation: awake and alert Skin no rashes or lesions noted and no wounds MDM MDM MDM Narrative Medical decision making narrative: Patient vital signs stable nontoxic no respiratory distress. Faint wheezing albuterol inhaler provided for which she is used in the past. Chest x-ray 2 views reviewed by myself shows no acute process. Discussed continued viral syndrome with his influenza diagnosis. Additional prescription for antitussives. Follow-up as an outpatient. All questions were answered. Radiography Diagnostic Testing: Clinical Impression(s) from Imaging Studies Chest X-Ray 07/04/21 10:03 IMPRESSION: Normal x-ray examination of the chest. Electronically Signed: Raj Falk MD at 10:33 EDT , Discharge Plan Triage Chief Complaint: Cough ED Provider: Haile Cruz Dx/Rx/DC Orders Clinical Impression: Viral URI with cough, Influenza Instructions: ED Influenza (Adult), ED URI, Viral, No Abx (Adult) Prescriptions: New benzonatate [benzonatate] 100 MG capsule 200 mg PO TID PRN PRN (Reason: Cough) Qty: 20 RF: 0 No Action metoprolol succinate [Toprol XL] 25 mg tablet extended release 24 hr 25 mg PO DAILY Qty: 90 RF: 3 flecainide 100 mg tablet 100 mg PO Q12H Qty: 30 RF: 0 acyclovir 200 MG capsule 400 mg PO BID RF: 0 paroxetine HCl [Paxil CR] 12.5 mg tablet extended release 24 hr 12.5 mg PO DAILY Qty: 30 RF: 0 Primary Care Provider: Obi Rodriguez Referrals: Obi Rodriguez MD [Primary Care Provider] - 1 Week if not improving Disposition Disposition: Home, Self Care Discharge Date/Time: 07/04/21 10:35
[2021-07-04 10:34] VITALS: BP 124/77; PULSE 89; RESP 19; O2SAT 96
== END 2021-07-04 10:35 | disposition home or self-care (01) ==
PROVIDERS: Emergency Provider Emergency Medicine; PCP Family Medicine; Visit Provider Emergency Medicine
DX: J11.1 Influenza due to unidentified influenza virus with other respiratory manifestations (principal); I48.0 Paroxysmal atrial fibrillation; I47.1 Supraventricular tachycardia; F17.210 Nicotine dependence, cigarettes, uncomplicated; Z79.899 Other long term (current) drug therapy
CPT/HCPCS: 71046; 99282

== ENCOUNTER → 2021-10-15 | Outpatient (CLI) | payer OTHER, SELFPAY | END | disposition home or self-care (01) | LOC: SL 21:42 | PROVIDERS: PCP Family Medicine; Referring Provider Internal Medicine Cardiovascular Disease; Visit Provider Internal Medicine Cardiovascular Disease | DX: G47.19 Other hypersomnia (principal); I48.0 Paroxysmal atrial fibrillation | CPT/HCPCS: 95810 ==

== ENCOUNTER → 2022-08-20 | Outpatient (CLI) | payer OTHER, SELFPAY | END | disposition home or self-care (01) | LOC: PSN 06:59 | PROVIDERS: PCP Family Medicine; Referring Provider Internal Medicine Cardiovascular Disease; Visit Provider Internal Medicine Cardiovascular Disease | DX: I48.0 Paroxysmal atrial fibrillation (principal); I45.10 Unspecified right bundle-branch block; R00.0 Tachycardia, unspecified; R00.2 Palpitations; Z51.81 Encounter for therapeutic drug level monitoring; Z79.899 Other long term (current) drug therapy | CPT/HCPCS: 93225; 93226 ==

== ENCOUNTER 2023-05-07 01:32 | Emergency (ER) | payer OTHER, SELFPAY ==
[2023-05-07 01:34] VITALS: BP 126/93; PULSE 163; RESP 16; TEMP 36.5; O2SAT 100; BMI 28.3
[2023-05-07 01:37] VITALS: BP 126/93; PULSE 149; RESP 16; TEMP 36.5; O2SAT 100
[2023-05-07 01:48] LABS: Absolute Lymphocyte Count 3.54 X10^3/uL (0.83-4.51); Absolute Neutrophil Count 4.7 X10^3/uL (2.0-7.7); Basophil# 0.09 X10^3/uL; Basophil% 0.9 % (0-1); Eosinophils% 2.1 % (0-5); Hematocrit 46.6 % (40-54); Hemoglobin 16.4 g/dL (13.0-16.5); Lymphocyte # 3.54 X10^3/ul (0.83-4.51); Lymphocyte % 36.8 % (19-41); Mean Corp Hgb Conc 35.2 g/dL (32-36); Mean Corpuscular Hgb 29.7 pg (27.0-32.0); Mean Corpuscular Volume 84.3 fL (80-94); Mean Platelet Vol. 8.7 fl (6.2-12.0); Monocyte# 1.08 X10^3/uL; Monocyte% 11.2 % (0-10); NRBC Flagged by Analyzer 0 % (0-5); Neutrophil # 4.67 X10^3/uL (2.7-7.7); Neutrophil % 48.7 % (47-70); Platelet Count 269 K/mm3 (150-450); RBC Distribution Width CV 11.9 % (11.6-14.6); RBC Distribution Width SD 35.8 fl (35.1-43.9); Red Blood Count 5.53 M/mm3 (4.6-6.2); White Blood Count 9.6 K/mm3 (4.4-11.0)
[2023-05-07] MEDS: 0.9% Normal Saline (1000mL) 1,000 ML 999 ML IV (01:48)
[2023-05-07] MEDS: Metoprolol Tartrate 5 MG/5 ML Vial IV ×3 (01:50→02:09)
--- OUTSIDE RECORDS SUMMARY | 2023-05-07 02:01 | XMS RPT_ITS | CCD ---
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 Trevon Benson Unavailable Amanda MAYS, Dr. Smith Unavailable [phone] JUAN CASH Unavailable Physical Therapy, Arnoldo Lovett Unavailable Leesa MAYS, Tabitha Martinez Unavailable Richi ACOSTAN, Iqra Unavailable Ej MAYS, Matt Mcclure Unavailable Colin ACOSTAN, Leisa Martinez Unavailable Unavailable Annette NUÑEZ, Carmencita Unavailable Unavailable Gogoi (scribe), Hemanta Unavailable Unavaila ble Amari ACOSTAN, Beatris Unavailable Unavailable Obi Rodriguez MD Unavailable Satinder LOPEZ, Jessica Unavailable Unavailable Sujatha DUFFY, Abigail Douglas Unavailable Unavaila ble Lorraine ACOSTAN, Jenny Moreno Unavailable Unavailab bipin Gentile LPN, Tabitha Durand Unavailable Unavailab bipin Liu LPN, Lisset Hernandez Unavailable Unavailab Stan Lal MD Unavailable Charan ACOSTAN, Michela Unavailable Unavailfrederic Pardo LPN, Deanne Magaña Unavailable Unavaila ble Unavailable Unavailable Medications Current Medications Medication Drug Class(es) Dates Sig (Normalized) Sig (Original) acyclovir 400 mg oral tablet (4 sources) Herpesvirus Nucleoside Analog DNA Polymerase Inhibitor, Herpes Simplex Virus Nucleoside Analog DNA Polymerase Inhibitor, Herpes Zoster Virus Nucleoside Analog DNA Polymerase Inhibitor Start: 03-25-2023 acyclovir 400 mg tablet ; 1 (one) Tablet two times daily for 0 days Quantity: 60 {Tablet} Refills: 2 Ordered: 25-Mar-2023 NAEEM Em Start: 25-Mar-2023 Completed/Discontinued Medications Medication Drug Class(es) Dates Sig (Normalized) Sig (Original) [id number] 200 actuat albuterol 0.09 mg/actuat metered dose inhaler (2 sources) beta2-Adrenergic Agonist Start: 09-08-2012 End: 12-15-2013 take 2 puff(s) by inhalation every four hours as needed for cough VENTOLIN HFA, 108 (90 Base)MCG/ACT (Inhalation Aerosol Solution) ; 2 (two) puff(s) puff(s) every four hours PRN cough or wheeze for 0 days Quantity: 1 {60_dose_unit} Refills: 2 Ordered: 15-Dec-2013 JOHN Pardo Start: 08-Sep-2012 End: 15-Dec-2013 Status: Inactive amoxicillin 500 mg oral capsule (2 sources) Penicillin-class Antibacterial Start: 07-10-2011 End: 07-20-2011 take 1 capsule by mouth three times daily AMOXICILLIN, 500MG (Oral Capsule) ; 1 (one) Capsule three times daily for 10 days Quantity: 30 {Capsule} Refills: 0 Ordered: 10-Jul-2011 JOHN Peters Start: 10-Jul-2011 End: 20-Jul-2011 Status: Inactive amoxicillin 875 mg / clavulanate 125 mg oral tablet (2 sources) Penicillin-class Antibacterial Start: 09-08-2012 End: 09-18-2012 take 1 tablet by mouth every twelve hours at mealtime AUGMENTIN, 875-125MG (Oral Tablet) ; 1 (one) Tablet every 12 hours with food for 10 days Quantity: 20 {Tablet} Refills: 0 Ordered: 08-Sep-2012 MD Obi Rodriguez Start: 08-Sep-2012 End: 18-Sep-2012 Status: Inactive azithromycin 500 mg oral tablet (2 sources) Macrolide Antimicrobial Start: 12-09-2018 End: 12-12-2018 take 1 tablet by mouth once daily Azithromycin 500 MG Oral Tablet ; 1 (one) Tablet daily for 3 days Quantity: 3 {Tablet} Refills: 0 Ordered: 09-Dec-2018 MD Obi Rodriguez Start: 09-Dec-2018 End: 12-Dec-2018 Status: Inactive benzonatate 100 mg oral capsule (2 sources) Non-narcotic Antitussive Start: 03-16-2021 take 2 capsules by mouth three times daily as needed benzonatate (TESSALON PERLE) 100 mg capsule Indications: URI with cough and congestion Take 2 capsules by mouth three times daily as needed. 30 capsule 0 03/16/2021 Active Problems Active Problems Problem Classification Problem Date Documented Da te Episodic/Chronic Administrative/social admission (4 sources) Patient encounter status; Translations: [Encounter for blood-alcohol and blood-drug test] 01-05-2019 Episodic Anal and rectal conditions (6 sources) Proctitis; Translations: [Other specified diseases of anus and rectum] 05-16-2014 Episodic Cardiac dysrhythmias (4 sources) Atrial fibrillation; Translations: [Unspecified atrial fibrillation] 08-13-2022 Chronic Past or Other Problems Problem Classification Problem Date Documented Da te Episodic/Chronic Unclassified (2 sources) Hypertension - The onset of the hypertension has been acute. The hypertension has been occurring in a recurrent pattern for 1 week. The course has been constant. The JNC classification is Stage 1 hypertension - 140-159 or 90-99 (pt said his bp is normally 110/70 is his normalbut it has been 150s/ 90 thw past weekthis am it was 173/97) The symptoms include fatigue (not sleeping well eiither), headache and palpitations (pt has been tachy), but do not include chest pain, dyspnea on exertion, visual changes or shortness of breath. 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 There is no family history of coronary artery disease, diabetes, hypertension, myocardial infarction before age 55 or stroke. 07-17-2019 Unclassified (2 sources) Warts - The warts are located on the genital area. Onset was gradual. Note for Warts : Pt would like to have warts removed. Pt also needs rx for suppositories for hemorrhoids, pt has been having some bloody stools 04-07-2019 Unclassified (2 sources) Follow-up - Patient is here today for a 1 month follow-up. Was last seen 12/09/2018 for HSV. Started on Famciclovir TID for 7 days and Azithromycin daily for 3 days. Lesions resolved after the medications but noticed about 1 week ago, that he had more lesions appear at the base of the penis and scrotum. These have improved and are healing. 01-05-2019 Unclassified (2 sources) Recheck - Patient was seen at Urgent Care last Wednesday12/02/2018 at [facility]. (pt states STD and urine tests were normal). Symptoms started about 2 week ago. Is having body aches of lower back and legs. Is having blisters and open sores of genital area. Lymph nodes of groin area are swollen. Has a red rash on the right side of groin.Was having pain and burning with urination, that has resolved. Did have sore throat for three days, has a cough. Did have chills last week, but no fever that patient is aware of. Patient states that his fiance had some genital bumps, but was not tested for STDS. 12-09-2018 Unclassified (1 source) Rash - The onset of the rash has been gradual and has been occurring in an intermittent pattern for 3 months. The course has been increasing. The rash is characterized as red and pustular. The rash was first seen on the lower extremity (legs). It spread to the back and the upper extremity (legs). There has been associated itching and drainage, while there has been no associated pain. There has been associated itching, while there has been no chills, fatigue, fever or pain. Note for Rash : pt states he had scabies back in april and also had staffpt states he was given cream in april which did help, but then 2 month later the itching came back 11-01-2018 Unclassified (1 source) [ADDITIONAL REASON] Shoulder pain - The onset of the shoulder pain has been gradual and has been occurring in an intermittent pattern for 9 months. The course has been increasing. The pain is characterized as a moderate dull aching. The pain is described as being located in the right shoulder and is aggravated by any movement. There are no relieving factors. The shoulder pain was preceded by trauma (playing softall about 1 yr ago). Previous physical therapy has included none (physical therapy for 2 months at [facility] and was much better after that). Note for Shoulder pain : reviewed by [facility] 11-01-2018 Unclassified (2 sources) Well adult male - The patient feels well with no complaints, has good energy level and is sleeping well. The patient has a balanced diet and takes no supplemental vitamins & iron. The patient exercises 3 - 4 times per week. The patient sleeps 6 hours per night. 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 thinks stress related 10-01-2017 Unclassified (2 sources) Warts - The patient is not currently being treated for this problem. The warts are located on the face and genital area. Onset was sudden month(s) ago. The patient describes this as moderate in severity and unchanged. Associated symptoms do not include bleeding, irritation or pain. Note for Warts : Would like to discuss treatment options. 10-26-2016 Unclassified (2 sources) Testicular symptoms - Symptoms include testicular pain and testicular swelling (at times and right testicle will feel hard at times.). Onset was gradual 3 year(s) ago (but has been pretty painful the past 1 1/2 weeks. ). The patient describes this as moderate in severity and worsening. Symptoms are exacerbated by sexual activity (and with urination but not all the time.). Note for Testicular symptoms : Pain is dull and is all the time. Nothing really takes the pain away. Pt tires to keep busy so he does not notice the pain as much. Pt had surgery on both testicles years ago- about 13- 15 years ago.Pt was seen last week for genital warts and those were frozen. Doing well with that. Had STD testing done and GC Chlamydia was negative. HIV testing not back yet. reviewed by [facility] 05-01-2016 Unclassified (2 sources) Skin tags - Patient reports he had what he believes to be a skin tag develop approx 16 months ago. It has gotten larger and he has developed more since then. Patient is here to have it checked today. 04-23-2016 Unclassified (2 sources) Allergic rhinitis - The onset of the allergic rhinitis has been acute and has been occurring in an increasing pattern for 1 day. The course has been worsening. The allergic rhinitis is described as moderate. Associated symptoms include itchy ears, nasal stuffiness, runny nose and watery eyes, while there has been no associated sore throat. The symptoms are not relieved by any method. 09-02-2015 Unclassified (2 sources) Back pain - The onset of the back pain has been sudden and has been occurring in a persistent pattern for 2 weeks. The course has been recurrent. The pain is characterized as a dull ache. The pain is located in the lower back (right side) and radiates to the right groin and lower abdomen. The pain is precipitated by heavy weight lifting. The symptoms are aggravated by weight lifting and prolonged standing and have no relieving factors. The pain has been associated with back stiffness and dysuria (rarely), while there has been no associated fever. Note for Back pain : Patient complains of urinary frequency and pain in his right testicle. Testicle draws up also. 05-31-2014 Unclassified (2 sources) Proctitis - Here for follow up for Proctitis. Continues with occasional bloody stools and abdominal pain. Also complains of increased with abdominal bloatin and groin pain. Anusol has helped but not completely. Will need refill. 04-05-2014 Unclassified (2 sources) Rectal bleeding - The onset of the rectal bleeding has been acute and has been occurring in a persistent pattern for years. The course has been increasing. The bleeding is characterized as blood mixed in stools. The symptoms have been associated with abdominal pain (Occasional) and heartburn (rarely), while the symptoms have not been associated with use of aspirin, vomiting or weight loss. The accompanying symptoms include painful bowel movements. Note for Rectal bleeding : Has had a history of hemorrhoids. 01-25-2014 Unclassified (2 sources) Several complaints - Patient complains of scrotum pain that has resolved. He also complains of urinary symptoms intermittent for the past year.Patient complains of having an irregular heartbeat as well.Note: Patient has lost 15# since his last visit. 12-15-2013 Unclassified (2 sources) follow up - Patient was seen on 04/14/13 for depression and started on sertraline 50mg daily. Patient is here to follow up today. Patient reports some improvement with medication but has good days and bad days . Patient denies any side effects from medications. 05-12-2013 Unclassified (2 sources) Depression (Initial) - The onset of the depression has been gradual and has been occurring in an intermittent pattern for 2 years. The course has been increasing. The symptoms include loss of interest, fatigue, trouble concentrating, irritability and anxiety. The symptoms have been associated with alcoholism, feeling tired and palpitations. The depression was preceded by stress. Note for Depression : Pt has been lifting weights and using a supplements for that and has noticed irregular heartrate, pt has not been taking supplements since last week. 04-19-2013 Unclassified (2 sources) Allergic rhinitis - The onset of the allergic rhinitis has been acute and has been occurring in a persistent pattern for 2 weeks. Associated symptoms include nasal stuffiness and runny nose. The symptoms are aggravated by spring season. The symptoms are not relieved by any method. Note for Allergic rhinitis : pt is taking zyrtec 09-08-2012 Unclassified (2 sources) Cold Symptoms - Symptoms include nasal congestion, ear fullness, sore throat, dry cough, fever, chills and general malaise. The onset was sudden 4 day(s) ago. The symptoms occur constantly. The patient describes this as moderate in severity and unchanged. Current treatment includes acetaminophen and NSAIDs. The patient has been exposed to an individual with an upper respiratory infection. Note for Cold Symptoms : Patient was treated with zithromax 6 weeks ago @ [facility] for chest congestion. 07-10-2011 Unclassified (2 sources) Cold Symptoms - Symptoms include sore throat, dry cough (very slight), fever (subjective) and general malaise (achy and tired yesterday). The onset was sudden 1 week(s) ago. The patient describes this as unchanged. Current treatment includes allergy medications, acetaminophen and NSAIDs. The patient has not been exposed to an individual with similar symptoms. Medical History Includes seasonal allergies (initially thought sx were related to allergies so tried zyrtec). Note for Cold Symptoms : Pt also c/o lightheadedness, feeling weak and fatigued and seeing spots sometimes. 08-16-2010 Unclassified (1 source) Shoulder pain - The onset of the shoulder pain has been gradual and has been occurring in an intermittent pattern for 9 months. The course has been increasing. The pain is characterized as a moderate dull aching. The pain is described as being located in the right shoulder and is aggravated by any movement. There are no relieving factors. The shoulder pain was preceded by trauma (playing softall about 1 yr ago). Previous physical therapy has included none (physical therapy for 2 months at [facility] and was much better after that). Note for Shoulder pain : reviewed by [facility] 11-01-2018 Unclassified (1 source) [ADDITIONAL REASON] Rash - The onset of the rash has been gradual and has been occurring in an intermittent pattern for 3 months. The course has been increasing. The rash is characterized as red and pustular. The rash was first seen on the lower extremity (legs). It spread to the back and the upper extremity (legs). There has been associated itching and drainage, while there has been no associated pain. There has been associated itching, while there has been no chills, fatigue, fever or pain. Note for Rash : pt states he had scabies back in april and also had staffpt states he was given cream in april which did help, but then 2 month later the itching came back 11-01-2018 Results Test Name Value Interpretation Reference Range Facil ity Vital Signs Date Time Vital Sign Value Performing Clinician Faci lity 08-13-2022 09:51-0400 Body height 173.99 cm Carmencita Bryant MA [employer] [facility] [employer] 08-13-2022 09:51-0400 Body mass index (BMI) [Ratio] 27.42 kg/m2 Carmencita Bryant MA [employer] [facility] [employer] 08-13-2022 09:51-0400 Body surface area Derived from formula 1.98 m2 Carmencita Bryant MA [employer] [facility] [employer] 08-13-2022 09:51-0400 Body weight 83.01 kg Carmencita Bryant MA [employer] [facility] [employer] 08-13-2022 09:51-0400 Diastolic blood pressure 75 mm[Hg] Carmencita Bryant MA [employer] [facility] [employer] Encounters Encounter Date Encounter Type Care Provider Facility Start: 08-13-2022 End: 08-13-2022 Historical Summary Henrique Em PA-C Work Phone: [employer] [facility] Start: 08-13-2022 End: 08-13-2022 Office outpatient new 20 minutes Henrique Em PA-C Work Phone: [employer] Start: 07-08-2021 End: 07-08-2021 Telephone follow-up Henrique Em PA-C Work Phone: [employer] Start: 07-03-2021 Telephone encounter Aman arriaga APRN.CNP Work Phone: [facility] Procedures Date Procedure Procedure Detail Performing Clinician Start: 04-07-2019 End: 04-07-2019 Destruction benign lesions up to 14 Obi Rodriguez MD Work Phone: Start: 11-01-2018 End: 12-06-2018 Mri any jt upper extremity w/o contrast matrl Matt Pagan MD Work Phone: Start: 12-08-2017 End: 12-08-2017 Flu imm no admin doc juan Stan rankin MD Work Phone: Start: 12-08-2017 End: 12-08-2017 No Known Health Maintenance History Hemanta Gogoi (scribe) Start: 10-26-2016 End: 10-26-2016 Destruction benign lesions up to 14 Obi Rodriguez MD Work Phone: Start: 04-23-2016 End: 04-23-2016 Destruction benign lesions up to 14 Obi Rodriguez MD Work Phone: Plan of Treatment Date Care Activity Detail Author Start: 11-27-2021 [facility] Start: 2009 Urine microalbumin profile DTAP,TDAP,TD (1 - Tdap) [facility] Start: 2008 HEPATITIS C SCREENING HEPATITIS C SCREENING [facility] Start: 2002 Adult depression screening assessment DEPRESSION SCREENING [facility] Start: 12-18-1995 COVID-19 VACCINE (1) COVID-19 VACCINE (1) [facility] Influenza virus A an d B RNA and SARS-CoV-2 (COVID-19) N gene panel - Respiratory specimen by KAVITHA with probe detection COVID WITH FLUA+B, ROUTINE Microbiology Routine Viral illness Ordered: 07/02/2021 [facility] Work Phone: Immunizations Immunization Date Immunization Notes Care Provider Hector redding 02-03-2017 hepatitis B vaccine, pediatric or pediatric/adolescent dosage Luke Manav PA-C [facility] 08-27-2016 hepatitis B vaccine, pediatric or pediatric/adolescent dosage Luke Manav PA-C Work Phone: [facility] [employer] [facility] 07-27-2016 hepatitis B vaccine, pediatric or pediatric/adolescent dosage Luke Manav PA-C Work Phone: [facility] 07-27-2016 tetanus toxoid, reduced diphtheria toxoid, and acellular pertussis vaccine, adsorbed Luke Manav PA-C Work Phone: [facility] [employer] [facility] 08-27-2006 tetanus toxoid, reduced diphtheria toxoid, and acellular pertussis vaccine, adsorbed Luke Manav PA-C Work Phone: [facility] 09-13-2003 measles, mumps and rubella virus vaccine Luke Manav PA-C Work Phone: [employer] [facility] [employer] [facility] 10-24-1996 diphtheria, tetanus toxoids and acellular pertussis vaccine Luke Manav PA-C Work Phone: [employer] [facility] [employer] 10-24-1996 trivalent poliovirus vaccine, live, oral Luke Manav PA-C Work Phone: [employer] [facility] [employer] 06-17-1992 diphtheria, tetanus toxoids and pertussis vaccine Luke Manav PA-C Work Phone: [facility] 06-17-1992 trivalent poliovirus vaccine, live, oral Luke Manav PA-C Work Phone: [facility] 04-12-1992 haemophilus influenz ae type b vaccine, PRP-T conjugate Luke Manav PA-C Work Phone: [facility] 04-12-1992 measles, mumps and rubella virus vaccine Luke Manav PA-C Work Phone: [facility] 07-05-1991 diphtheria, tetanus toxoids and pertussis vaccine Luke Manav PA-C Work Phone: [facility] 07-05-1991 haemophilus influenz ae type b vaccine, PRP-T conjugate Luke Manav PA-C Work Phone: [facility].; [facility] 04-18-1991 diphtheria, tetanus toxoids and pertussis vaccine Luke Manav PA-C Work Phone: [facility] 04-18-1991 haemophilus influenz ae type b vaccine, PRP-T conjugate Luke Manav PA-C Work Phone: [facility].; [facility] 04-18-1991 trivalent poliovirus vaccine, live, oral Luke Manav PA-C Work Phone: [facility] 02-16-1991 diphtheria, tetanus toxoids and pertussis vaccine Luke Manav PA-C Work Phone: [facility] 02-16-1991 haemophilus influenz ae type b vaccine, PRP-T conjugate Luke Manav PA-C Work Phone: [facility]. 02-16-1991 trivalent poliovirus vaccine, live, oral Henrique Em PA-C Work Phone: [facility].; [facility] Payers Date Payer Category Payer Private Health Insurance [facility] [employer] [id number] 2021-Present [phone] [address] [place] [address] HMO [id number] 1990 Unknown [id number] Unknown [id number] Social History Date Type Detail Facility Start: 05-16-2014 Tobacco smoking stat [facility] Never smoked tobacco [facility] Work Phone: Start: 05-16-2014 Tobacco use and exposure User of smokeless tobacco [facility] Work Phone: Start: 07-02-2021 Alcohol intake Current drinke r of alcohol (finding) [facility] Start: 05-16-2014 History SDOH Alcohol Comment ocas [facility] Start: 1990 Sex Assigned At Not on file [facility] Start: 06-22-2021 End: 07-02-2021 Exposure to SARS-CoV-2 (event) Not sure [facility] Work Phone: Alcohol use: Alcohol use: ; H eavy alcohol use. Would like to quit. [facility], [facility]. Non Smoker/No Tobacc o Use Non Smoker/No Tobacco Use [facility].; [facility], [facility]. Tobacco Use: Tobacco Use: ; N ever smoker. Uses chewing tobacco. [facility].; [employer] [facility], [facility] Male [facility].; [facility] Work Phone: Would like to quit [facility]. Work Phone: Uses chewing tobacco [facility]. Work Phone: Heavy alcohol use [facility]. Work Phone: Note 07-03-2021 Telephone Encounter - Diana Varma LPN - 07/03/2021 9:22 AM EDTTelephone Encounter - Aman Bonilla APRN.CNP - 07/03/2021 9:19 AM EDT Note Date & Type Note Facility 07-03-2021 Miscellaneous Notes Phone call placed patient advised (see prior provider encounter) Patient verbalized understanding, agreed with plan of care. Diana Varma LPN Please notify that covid testing negative. Patient tested positive for Influenza A. Symptoms typically last 5-7 days Push fluids otc cough could medication advised F/u for continuing/worsening s/s If you experience chest pain/shortness of breath go to ER documented in this encounter [facility] Influenza virus A and B RNA and SARS-CoV-2 (COVID-19) N gene panel KAVITHA+probe (Resp) 07-02-2021 Note Date & Type Note Facility 07-02-2021 Influenza virus A and B RNA and SARS-CoV-2 (COVID-19) N gene panel KAVITHA+probe (Resp) COVID 19 RESULT: SARS-CoV-2 (Agent of COVID-19) Not Detected by RT-PCR or equivalent method. anthony [id number] (ADELINE)_EUA This test was developed and its performance characteristics determined by [facility]'s [facility] [place]. This test has been authorized by FDA under an Emergency Use Authorization (EUA). This test has been validated in accordance with the FDA's Guidance Document Policy for Diagnostics Testing in Laboratories Certified to Perform High Complexity Testing under CLIA prior to Emergency use Authorization for Coronavirus Disease 2019 during the Public Health Emergency issued on May 27, 2019. Test performed by [facility], [facility] [place], [address] [place], [place] [address]. INFLUENZA A PCR: Positive for Influenza A by RT-PCR INFLUENZA B PCR: Negative for Influenza B by RT-PCR [facility] Progress note 07-02-2021 Note Date & Type Note Facility 07-02-2021 Note HNO ID: [id number] Author: Nestor Castillo APRN.[employer] Service: ? Author Type: Nurse Practitioner Type: Progress Notes Filed: 07/02/2021 12:20 PM Note Text: Subjective HPI Patient presents to urgent care with chief complaint of fever and cough. Duration of symptoms 2 days Associated symptoms with today's chief complaint are on and off headache, muscle aches, fatigue, nonproductive cough, and fever. Patient stated symptoms started abruptly. Patient states they have used ajyf-abv-yvpmlsy medication with some success. Patient states they were in contact with individuals who were diagnosed with influenza. Patient denies any pain at this time. Patient denies any visual changes, visual disturbance, shortness of breath, rash, exercise intolerance, pleuritic pain, productive cough, abdominal pain, nausea, vomiting, chest pain, or change in bowel or bladder habits. .Patient presents with: Cough: fever, chills, bodyaches, congestion x2 days PAST MEDICAL HISTORY Diagnosis Date - Proctitis - Rectal bleeding - Snoring PAST SURGICAL HISTORY Procedure Laterality Date - COLONOSCOPY FLX DX W/COLLJ SPEC WHEN PFRMD 06/15/14 Repeat when age 50 - PAST SURGICAL HISTORY OF testicular surgery ALLERGIES Patient has no known allergies. MEDICATIONS acyclovir (ZOVIRAX) 200 mg capsule Take by mouth. metoprolol succinate ER (TOPROL XL) 25 mg 24 hr tablet Take 25 mg by mouth once daily. flecainide (TAMBOCOR) 100 mg tablet Take by mouth. PARoxetine ER (PAXIL CR) 12.5 mg 24 hr tablet Take 12.5 mg by mouth once daily. benzonatate (TESSALON PERLE) 100 mg capsule Take 2 capsules by mouth three times daily as needed. fluticasone (FLONASE) 50 mcg/actuation nasal spray Use 2 Sprays in each nostril once daily. Rinse mouth after use. loratadine/pseudoephedrine (CLARITIN-D 24 HOUR ORAL) Take by mouth as needed. FAMILY HISTORY Problem Relation Age of Onset - other (negative [Other]) Unknown Social History Tobacco Use - Smoking status: Never Smoker - Smokeless tobacco: Current User Substance Use Topics - Alcohol use: Yes Comment: ocas - Drug use: No BP 124/80 Pulse 107 Temp (!) 38 ?C (100.4 ?F) Resp 20 Wt 81.9 kg (180 lb 9.6 oz) SpO2 98% hr 94 Review of Systems Constitutional: Positive for chills, fever and malaise/fatigue. HENT: Positive for congestion and sore throat. Negative for ear discharge, ear pain and sinus pain. Eyes: Negative for blurred vision, pain, discharge and redness. Respiratory: Positive for cough. Negative for hemoptysis, sputum production, shortness of breath, wheezing and stridor. Cardiovascular: Negative for chest pain. Gastrointestinal: Positive for nausea. Negative for abdominal pain, diarrhea and vomiting. Musculoskeletal: Positive for myalgias. Skin: Negative for itching and rash. Neurological: Positive for headaches. Negative for dizziness. Objective Physical Exam Constitutional: General: He is not in acute distress. Appearance: He is not diaphoretic. HENT: Head: Normocephalic. Nose: Nose normal. Mouth/Throat: Mouth: Mucous membranes are moist. Pharynx: Oropharynx is clear. No oropharyngeal exudate or posterior oropharyngeal erythema. Eyes: Conjunctiva/sclera: Conjunctivae normal. Pupils: Pupils are equal, round, and reactive to light. Cardiovascular: Rate and Rhythm: Normal rate and regular rhythm. Heart sounds: Normal heart sounds. Pulmonary: Effort: Pulmonary effort is normal. No tachypnea, accessory muscle usage or respiratory distress. Breath sounds: Normal breath sounds. No stridor. No wheezing, rhonchi or rales. Abdominal: Palpations: Abdomen is soft. Tenderness: There is no abdominal tenderness. Musculoskeletal: Cervical back: Normal range of motion and neck supple. No rigidity or tenderness. Lymphadenopathy: Cervical: No cervical adenopathy. Skin: General: Skin is warm and dry. Neurological: Mental Status: He is alert and oriented to person, place, and time. ASSESSMENT/PLAN: 1. Viral illness - ICD9: 079.99, ICD10: B34.9 - COVID WITH FLUA+B, ROUTINE Patient diagnosed with viral illness. Suspicious of influenza A. Patient was in direct contact with individuals tested positive for flu 2 days ago. 19 influenza tests ordered. Results pending. Home quarantining recommended. Patient was educated on supportive therapies. Patient will follow up with primary care provider as needed. Patient was instructed to immediately proceed to emergency room for any new, worsening, or symptoms lasting longer than anticipated. The patient's clinical presentation is otherwise unremarkable at this time. Based on exam and clinical finding, the patient is stable for discharge. Plan of care was discussed with patient. Patient verbalizes understanding and agrees to plan of care. This note was generated using [employer] software. It may contain errors in wording, punctuation, or spelling. Nestor Daniel (more content not included)... [facility] Instructions 07-02-2021 Patient Instructions Note Date & Type Note Facility 07-02-2021 Instructions Nestor Castillo APRN.[facility] - 07/02/2021 11:56 AM EDT How to Manage Common Symptoms Associated with COVID for Adults Fever- Fever is a temperature over 100.4 F and can occur when the body is fighting an infection. To help treat a fever: Drink plenty of fluids and stay well hydrated. Eat small amounts of easy to digest food. Rest. Your body needs rest to recover, but getting up and moving around the house frequently is a good idea. You should try to continue doing your normal daily activities (bathing, toileting, grooming, cooking), though you will probably feel tired, and need to rest often. Avoid any heavy activity or exercise, as this will increase your body temperature. Dress in light clothing and stay covered in a light sheet. Keep the room temperature cool. Take a slightly warm (not cold or cool) bath, or apply damp washcloths to the forehead and wrists. Cough- Cough is a common symptom associated with COVID and can be bothersome. To help treat a cough: Stay well hydrated. Try warm water or tea with lemon and/or honey to help soothe the cough. Use a humidifier to add moisture to the air. Try a product with menthol, like a cough drop or a rub for your chest such as Vicks, which can help reduce cough. Try cough drops. Avoid smoking and other strong odors or perfumes. Try breathing exercises to keep your lungs open and clear. Take a big deep breath through your nose and hold for 5 seconds before slowly releasing. Repeat frequently, while you are awake. Congestion- Runny nose or nasal congestion can occur with COVID. Treatment can help relieve symptoms: Try OTC nasal saline spray, or nasal saline rinse to relieve mucus congestion. Nasal strips can help keep nasal passages open, to increase airflow. Elevating your head with an extra pillow in bed can help reduce congestion. Using a humidifier can increase moisture in the air, and make breathing easier. Sore Throat- Another common symptom with COVID, can be managed at home by: Stay well hydrated. Gargle with salt water mix teaspoon salt with 1 cup of warm water and gargle. This helps to loosen mucus in the back of the throat and may reduce discomfort. Try ice chips, popsicles or lozenges to soothe the throat. Nausea/Vomiting/Diarrhea- These are common symptoms, and staying hydrated is most important. If you are nauseous or vomiting, start with small sips of water every 10-15 minutes and increase as tolerated. You can try sucking an ice cube too. If tolerating, you can try pedialyte or Gatorade, or flat sprite or sumaya-tomas. Start slowly and increase as you are able to. Instead of meals, try smaller, more frequent snacks. Try eating bland foods like crackers, toast, rice, and applesauce. Avoid spicy, greasy or fried foods and dairy containing foods. Even if you aren't feeling hungry due to lack of smell or taste, it is important to try to take in some food when you are able. After drinking and eating, rest in an upright position for up to two hours as needed to help decrease nauseous feelings. Try closing your eyes, avoid moving and watching TV. Avoid strong odors that can make you feel more nauseated. When to seek emergency medical attention Look for emergency warning signs for COVID-19. If having any of these symptoms, seek emergency medical care immediately: Trouble breathing Persistent pain or pressure in the chest New confusion Inability to wake or stay awake Bluish lips or face *This list is not all possible symptoms. Please call your medical provider for any other symptoms that are severe or concerning to you. documented in this encounter [facility] History of Present illness Narrative 07-02-2021 Nestor Castillo APRN.KILLIAN - 07/02/2021 11:49 AM EDT Note Date & Type Note Facility 07-02-2021 History of Presen t illness Narrative Subjective HPI Patient presents to urgent care with chief complaint of fever and cough. Duration of symptoms 2 days Associated symptoms with today's chief complaint are on and off headache, muscle aches, fatigue, nonproductive cough, and fever. Patient stated symptoms started abruptly. Patient states they have used yzfg-zdy-tsvipbi medication with some success. Patient states they were in contact with individuals who were diagnosed with influenza. Patient denies any pain at this time. Patient denies any visual changes, visual disturbance, shortness of breath, rash, exercise intolerance, pleuritic pain, productive cough, abdominal pain, nausea, vomiting, chest pain, or change in bowel or bladder habits. .Patient presents with: Cough: fever, chills, bodyaches, congestion x2 days PAST MEDICAL HISTORY Diagnosis Date Proctitis Rectal bleeding Snoring PAST SURGICAL HISTORY Procedure Laterality Date COLONOSCOPY FLX DX W/COLLJ SPEC WHEN PFRMD 06/15/14 Repeat when age 50 PAST SURGICAL HISTORY OF testicular surgery ALLERGIES Patient has no known allergies. MEDICATIONS acyclovir (ZOVIRAX) 200 mg capsule Take by mouth. metoprolol succinate ER (TOPROL XL) 25 mg 24 hr tablet Take 25 mg by mouth once daily. flecainide (TAMBOCOR) 100 mg tablet Take by mouth. PARoxetine ER (PAXIL CR) 12.5 mg 24 hr tablet Take 12.5 mg by mouth once daily. benzonatate (TESSALON PERLE) 100 mg capsule Take 2 capsules by mouth three times daily as needed. fluticasone (FLONASE) 50 mcg/actuation nasal spray Use 2 Sprays in each nostril once daily. Rinse mouth after use. loratadine/pseudoephedrine (CLARITIN-D 24 HOUR ORAL) Take by mouth as needed. FAMILY HISTORY Problem Relation Age of Onset other (negative [Other]) Unknown Social History Tobacco Use Smoking status: Never Smoker Smokeless tobacco: Current User Substance Use Topics Alcohol use: Yes Comment: ocas Drug use: No BP 124/80 Pulse 107 Temp (!) 38 C (100.4 F) Resp 20 Wt 81.9 kg (180 lb 9.6 oz) SpO2 98% hr 94 Review of Systems Constitutional: Positive for chills, fever and malaise/fatigue. HENT: Positive for congestion and sore throat. Negative for ear discharge, ear pain and sinus pain. Eyes: Negative for blurred vision, pain, discharge and redness. Respiratory: Positive for cough. Negative for hemoptysis, sputum production, shortness of breath, wheezing and stridor. Cardiovascular: Negative for chest pain. Gastrointestinal: Positive for nausea. Negative for abdominal pain, diarrhea and vomiting. Musculoskeletal: Positive for myalgias. Skin: Negative for itching and rash. Neurological: Positive for headaches. Negative for dizziness. Objective Physical Exam Constitutional: General: He is not in acute distress. Appearance: He is not diaphoretic. HENT: Head: Normocephalic. Nose: Nose normal. Mouth/Throat: Mouth: Mucous membranes are moist. Pharynx: Oropharynx is clear. No oropharyngeal exudate or posterior oropharyngeal erythema. Eyes: Conjunctiva/sclera: Conjunctivae normal. Pupils: Pupils are equal, round, and reactive to light. Cardiovascular: Rate and Rhythm: Normal rate and regular rhythm. Heart sounds: Normal heart sounds. Pulmonary: Effort: Pulmonary effort is normal. No tachypnea, accessory muscle usage or respiratory distress. Breath sounds: Normal breath sounds. No stridor. No wheezing, rhonchi or rales. Abdominal: Palpations: Abdomen is soft. Tenderness: There is no abdominal tenderness. Musculoskeletal: Cervical back: Normal range of motion and neck supple. No rigidity or tenderness. Lymphadenopathy: Cervical: No cervical adenopathy. Skin: General: Skin is warm and dry. Neurological: Mental Status: He is alert and oriented to person, place, and time. ASSESSMENT/PLAN: 1. Viral illness - ICD9: 079.99, ICD10: B34.9 - COVID WITH FLUA+B, ROUTINE Patient diagnosed with viral illness. Suspicious of influenza A. Patient was in direct contact with individuals tested positive for flu 2 days ago. 19 influenza tests ordered. Results pending. Home quarantining recommended. Patient was educated on supportive therapies. Patient will follow up with primary care provider as needed. Patient was instructed to immediately proceed to emergency room for any new, worsening, or symptoms lasting longer than anticipated. The patient's clinical presentation is otherwise unremarkable at this time. Based on exam and clinical finding, the patient is stable for discharge. Plan of care was discussed with patient. Patient verbalizes understanding and agrees to plan of care. This note was generated using [employer] software. It may contain errors in wording, punctuation, or spelling. Nestor Castillo APRN.KILLIAN documented in this encounter [facility] Progress note 03-16-2021 Note Date & Type Note Facility 03-16-2021 Note HNO ID: [id number] Author: Aman Bonilla APRN.CNP Service: ? Author Type: Nurse Practitioner Type: Progress Notes Filed: 03/16/2021 1:50 PM Note Text: Subjective HPI HPI Stone Chin is a 30 year old male who presents today for CC of cough, congestion, fatigue, runny nose. This started 1-2 days ago. Has tried otc medication for relief. Symptoms are worsened by nothing. Risk factors recent sick exposures. Denies cp/sob, diarrhea, loss taste/smell, ear pain, st. Hx of Afib.. .Patient presents with: Chest Congestion: cough, fatigue x 1 day PAST MEDICAL HISTORY Diagnosis Date - Proctitis - Rectal bleeding - Snoring PAST SURGICAL HISTORY Procedure Laterality Date - COLONOSCOP W/ OR W/O [facility] SPEC 06/15/14 Repeat when age 50 - PAST SURGICAL HISTORY OF testicular surgery ALLERGIES Patient has no known allergies. MEDICATIONS acyclovir (ZOVIRAX) 200 mg capsule Take by mouth. flecainide (TAMBOCOR) 100 mg tablet Take by mouth. loratadine/pseudoephedrine (CLARITIN-D 24 HOUR ORAL) Take by mouth as needed. metoprolol succinate ER (TOPROL XL) 25 mg 24 hr tablet Take 25 mg by mouth once daily. PARoxetine ER (PAXIL CR) 12.5 mg 24 hr tablet Take 12.5 mg by mouth once daily. FAMILY HISTORY Problem Relation Age of Onset - other (negative [Other]) Unknown Social History Tobacco Use - Smoking status: Never Smoker - Smokeless tobacco: Current User Substance Use Topics - Alcohol use: Yes Comment: ocas - Drug use: No ROS Objective Blood pressure 120/82, pulse 118, temperature 37 ?C (98.6 ?F), resp. rate 18, weight 78.5 kg (173 lb), SpO2 99 %. Physical Exam Constitutional: General: He is not in acute distress. Appearance: He is not toxic-appearing or diaphoretic. HENT: Head: Normocephalic and atraumatic. Right Ear: Hearing, tympanic membrane, ear canal and external ear normal. Left Ear: Hearing, tympanic membrane, ear canal and external ear normal. Nose: Nose normal. Eyes: General: Lids are normal. No scleral icterus. Right eye: No discharge. Left eye: No discharge. Conjunctiva/sclera: Conjunctivae normal. Pupils: Pupils are equal, round, and reactive to light. Neck: Trachea: Trachea normal. Cardiovascular: Rate and Rhythm: Normal rate and regular rhythm. Heart sounds: Normal heart sounds. Pulmonary: Effort: Pulmonary effort is normal. Breath sounds: Normal breath sounds. Musculoskeletal: Cervical back: Normal range of motion and neck supple. Lymphadenopathy: Cervical: No cervical adenopathy. Right cervical: No superficial cervical adenopathy. Left cervical: No superficial cervical adenopathy. Skin: Findings: No rash. Neurological: Mental Status: He is alert and oriented to person, place, and time. ASSESSMENT/PLAN: 1. URI with cough and congestion - ICD9: 465.9, ICD10: J06.9 - Discussed viral etiology and rationale for treatment. - Symptomatic treatment with prn analgesia - Supportive care with fluids and rest - Follow up in 3-5 days if symptoms persist or sooner if worsening of symptoms Discussed quarantine, social distancing otc medications discussed Push fluids -If you experience chest pain/shortness of breath go to ER - BENZONATATE 100 MG CAPSULE - FLUTICASONE PROPIONATE 50 MCG/ACTUATION NASAL SPRAY,SUSPENSION - 2019 CORONAVIRUS Agrees to plan Aman Bonilla APRN.KILLIAN [facility] Evaluation note Note Date & Type Note Facility documented in this encounter [facility] Summary Purpose Family History Cancer Status:Active Comments:materna l aunt Coronary Artery Disease Status:Active Comments :Maternal Grandmother. Maternal Grandfather. Hypertension Status:Active Comments:Mother. Maternal Grandfather. Maternal Grandmother. Paternal Grandmother. Paternal Grandfather. Osteoarthritis Status:Active Comments:Paterna l Grandfather. Maternal Grandfather. Cancer Status:Active Comments:materna l aunt Coronary Artery Disease Status:Active Comments :Maternal Grandmother. Maternal Grandfather. Hypertension Status:Active Comments:Mother. Maternal Grandfather. Maternal Grandmother. Paternal Grandmother. Paternal Grandfather. Osteoarthritis Status:Active Comments:Paterna l Grandfather. Maternal Grandfather. Advance Directives No Advanced Directives Records FoundNo Advanced Directives Records FoundNo Advanced Directives Records Found Additional Source Comments (unrecognized sect ion and content) No Status Records FoundNo Status Records FoundNo Status Records Found INFORMATION SOURCE (unrecogn ized section and content) DATE CREATED AUTHOR AUTHOR'S ORGANIZ ATION 04/10/2021 [facility] DATE CREATED AUTHOR AUTHOR'S ORGANIZ ATION 07/04/2021 [facility] Source Comments (unrecognize d section and content) In the event this informatio n is protected by the Federal Confidentiality of Alcohol and Drug Abuse Patient Records regulations: The Federal rules restrict any use of the information to criminally investigate or prosecute any alcohol or drug abuse patient.[facility] the event this information is protected by the Federal Confidentiality of Alcohol and Drug Abuse Patient Records regulations: The Federal rules restrict any use of the information to criminally investigate or prosecute any alcohol or drug abuse patient.[facility] Reason for Visit (unrecogniz ed section and content) Reason Comments Results Care Teams (unrecognized sec tion and content) [employer] Relationship Specialty Start Date End Date Obi Rodriguez PCP - General Family Practice 04/06/14 FOR RECORDS PERTAINING TO PATIENTS WHO ARE OR HAVE BEEN ENROLLED IN A CHEMICAL DEPENDENCY/SUBSTANCEABUSE PROGRAM, SOME INFORMATION MAY BE OMITTED. This clinical summary was aggregated from multiple sources. Caution should be exercised in using it in the provision of clinical care. This summary normalizes information from multiple sources, and as a consequence, information in this document may materially change the coding, format and clinical context of patient data. In addition, data may be omitted in some cases. CLINICAL DECISIONS SHOULD BE BASED ON THE PRIMARY CLINICAL RECORDS. [facility]. provides no warranty or guarantee of the accuracy or completeness of information in this document.
[2023-05-07 02:03] VITALS: BP 108/87; PULSE 92; RESP 16; O2SAT 99
[2023-05-07 02:04] LABS: Amphetamine Urine VISTA NEGATIVE (<1000 ng/mL); Barbiturate Urine VISTA NEGATIVE (< 200 ng/mL); Benzodiazepine Urine VISTA NEGATIVE (< 200 ng/mL); Cocaine Urine VISTA NEGATIVE (< 300 ng/mL); Ecstacy Urine VISTA NEGATIVE (< 500 ng/mL); Methadone Urine VISTA NEGATIVE (< 300 ng/mL); PCP Urine VISTA NEGATIVE (< 25 ng/mL); THC Urine VISTA NEGATIVE (< 50 ng/mL); Vista UDS pH Range 7
[2023-05-07 02:13] LABS: Anion Gap 9 (5-15); BUN 18 mg/dL (7-18); BUN/Creat Ratio 16.1 RATIO (10-20); Calcium,Total 9.2 mg/dL (8.5-10.1); Chloride 108 mmol/L (98-107); Creatinine, Serum 1.12 mg/dL (0.70-1.30); EST Glomerular Filtration Rate 81 mL/min (>60); Est Glom Filt Rate - Afr Amer 98 mL/min (>60); Estimated Creatinine Clearance 97.15 ml/min; Glucose 147 mg/dL (74-106); Potassium 3.4 mmol/L (3.5-5.1); Sodium Level 142 mmol/L (136-145)
[2023-05-07] MEDS: Potassium Chloride Oral Tablet 20 MEQ 40 MEQ PO (02:46)
--- NOTE | 2023-05-07 03:46 | EX.ED.DYSGE1 ---
HPI History of Present Illness Chief Complaint: Palpitations Informant: patient Narrative Narrative: Patient is a 32-year-old male who reports a past medical history of paroxysmal atrial fibrillation. He said he was diagnosed with that roughly 3 years ago. At that time he was placed on flecainide and metoprolol. He states that he was in normal sinus rhythm for a few years and therefore his clockmaker apprentice elected to take him off his medication. He states has been off the meds for roughly 1 year and since that time he will have short intermittent bouts of A-fib but that this evening his heart began to race but instead of resolving after a few minutes and has persisted for multiple hours and therefore he comes in for evaluation. Patient denies any excessive stimulant use or illicit drug use. He denies any chest pain or shortness of breath associated with this [facility] Medical History Atrial fibrillation with rapid ventricular response (10/03/20) Daytime hypersomnolence Incomplete right bundle branch block Labral tear of shoulder Nicotine dependence Home Medications Oral appliance #1 ea 11/13/21 [Rx Last Taken Unknown] apixaban 5 mg tablet (Eliquis) 5 mg PO BID 30 days #60 tabs 05/07/23 [Rx Last Taken Unknown] flecainide 100 mg tablet 100 mg PO DAILY 30 days #30 tabs 05/07/23 [Rx Last Taken Unknown] flecainide 100 mg tablet 100 mg PO PRN 05/07/23 [History Last Taken Unknown] metoprolol succinate 25 mg tablet,extended release 24 hr 25 mg PO BID 30 days #60 tabs 05/07/23 [Rx Last Taken Unknown] Allergy/AdvReac Type Severity Reaction Status Date / Time No Known Allergies Allergy Verified 05/07/23 01:34 Family History Grandmother Heart disease SSS PPM CAD (coronary artery disease), Onset Age: 50 CABG Grandfather CAD (coronary artery disease), Onset Age: 60 Social History household members: none Smoking Status: Former smoker Smokeless tobacco user: chewing tobacco alcohol intake: current alcohol intake frequency: a few times a month Alcohol type: beer substance use type: does not use caffeine: Yes Type: coffee Number of servings: 2 ROS ROS ED Constitutional Constitutional ED: Denies chills or fever(s) Eyes Eyes: Denies change in vision ENT ENT ED: Denies sore throat Cardiovascular Cardiovascular: Reports palpitations and racing heartbeat; Denies chest pain Respiratory/Chest Respiratory/Chest: Denies cough or dyspnea Gastrointestinal Gastrointestinal: Denies abdominal pain, diarrhea, nausea or vomiting Genitourinary Genitourinary ED: Denies dysuria Musculoskeletal Musculoskeletal: Denies myalgias Integumentary Denies rash Neurologic Neurologic: Denies headache(s) Hematologic/Lymphatic Hematologic/Lymphatic: Denies easy bleeding or easy bruising EXAM Physical Exam Const Vital Signs: 05/07/23 01:34 05/07/23 01:37 05/07/23 02:03 Temperature 97.7 F L 97.7 F L Temperature Source Oral Oral Pulse Rate 163 H 149 H 92 Respiratory Rate 16 16 16 Blood Pressure 126/93 H 126/93 H 108/87 H Blood Pressure Mean 104 104 94 Pulse Ox 100 100 99 Oxygen Delivery Method Room Air Room Air Room Air 05/07/23 04:14 Temperature 98.0 F Temperature Source Pulse Rate 102 H Respiratory Rate 20 H Blood Pressure 104/86 H Blood Pressure Mean 92 Pulse Ox 99 Oxygen Delivery Method Positive well nourished and well developed General Appearance ED: well developed; Negative for pallor HEENT HEENT Narrative: Normocephalic atraumatic Eyes PERRL and EOMs intact bilaterally Neck supple Resp normal respiratory effort and clear to auscultation bilaterally Cardio Rate: other Other Details: Irregularly irregular rhythm with tachycardic rate consistent with atrial fibrillation GI normal to inspection, nondistended, normoactive bowel sounds, non-tender, non-distended and no masses Auscultation: normoactive bowel sounds Palpation: soft Extremity normal to inspection Extremity Narrative: No asymmetric edema no pitting edema negative Homans' sign bilaterally Neuro oriented x3, CN's II-XII intact bilaterally and no sensory deficits noted Sensorium / Orientation: alert Motor Exam: strength 5/5 throughout Psych mental status grossly normal Skin no rashes or lesions noted General Skin Exam: Negative for jaundice or pallor MDM MDM MDM Narrative Medical decision making narrative: Patient arrived to the ER in A-fib with RVR with a heart rate ranging from proximal 150-180. He has a past medical history of this but states he has not been in a prolonged bout of it for almost a year and is no longer on medication. Differential diagnosis is for acute blood loss anemia versus electrolyte abnormality versus acute kidney injury versus illicit substance leading to the sudden onset A-fib. Secondary to his basic blood work with a urine tox sample was obtained. Blood work showed just slight hypokalemia at 3.4 which is not clinically significant but as he is in an abnormal heart rhythm he was given 1 dose of oral potassium to bring this into a normal range. Urine toxin was also normal. The patient was given 3 doses of metoprolol by IV route and his heart rate reduced from approximately 170 down to 90 to 100 bpm. At this time the patient is hemodynamically stable and his heart rate is hovering right around the normal range. Therefore there is no need for an emergent cardioversion. Patient will be started back on his flecainide and metoprolol which he has used to help control symptoms in the past. Eliquis will also be added as he is in atrial fibrillation and has higher risk for stroke/clot formation. However at this time as workup reveals no clinically significant findings and his heart rate is essentially at the upper limit of normal range I do not feel there is need for admission for emergent cardiology intervention and that he can see them on an outpatient basis. This plan of care was discussed with the patient and he is agreeable to it History & Record Review Discussion w/independent historian: Patient Lab Data Attestation: I reviewed the patient's lab results. Labs: Laboratory Results - last 24 hr 05/07/23 05/07/23 01:35 01:40 WBC 9.6 RBC 5.53 Hgb 16.4 Hct 46.6 MCV 84.3 MCH 29.7 MCHC 35.2 RDW Std Deviation 35.8 RDW Coeff of Anny 11.9 Plt Count 269 MPV 8.7 Immature Gran % (Auto) 0.300 Neut % (Auto) 48.7 Lymph % (Auto) 36.8 Amelia % (Auto) 11.2 H Eos % (Auto) 2.1 Baso % (Auto) 0.9 Absolute Neuts (auto) 4.7 Absolute Lymphs (auto) 3.54 Nucleated RBC % 0 Sodium 142 Potassium 3.4 L Chloride 108 H Carbon Dioxide 25.0 Anion Gap 9 BUN 18 Creatinine 1.12 Estim Creat Clear Calc 97.15 Est GFR (MDRD) Af Amer 98 Est GFR (MDRD) Non-Af 81 BUN/Creatinine Ratio 16.1 Glucose 147 H Calcium 9.2 Magnesium 2.0 TSH 2.90 Urine Opiates Screen NEGATIVE Urine Methadone Screen NEGATIVE Ur Barbiturates Screen NEGATIVE Ur Phencyclidine Scrn NEGATIVE Ur Amphetamines Screen NEGATIVE MDMA (Ecstasy) Screen NEGATIVE U Benzodiazepines Scrn NEGATIVE Urine Cocaine Screen NEGATIVE U Cannabinoids Screen NEGATIVE Ur Drug Screen Comment Critical Care Time Critical Care Time: Yes Critical care time (excluding procedures): Discussing w/Patient &/or Family/Lion Trainer and - (Please note critical care time of 31 minutes) Discharge Plan Triage Chief Complaint: Palpitations ED Provider: Stefan Betancourt Dx/Rx/DC Orders Clinical Impression: Nicotine dependence, Paroxysmal atrial fibrillation with rapid ventricular response Instructions: AFib Preventing Stroke, AFib Prescriptions: New flecainide 100 mg tablet 100 mg PO DAILY 30 Days Qty: 30 1RF metoprolol succinate 25 mg tablet extended release 24 hr 25 mg PO BID 30 Days Qty: 60 1RF Eliquis 5 mg tablet 5 mg PO BID 30 Days Qty: 60 0RF No Action (DME) Oral appliance See Rx Instructions .ROUTE .MEDSUPPLY Qty: 1 0RF Rx Instructions: As directed flecainide 100 mg tablet 100 mg PO PRN Primary Care Provider: Matt Pagan Referrals: Silas Elliott MD [Med Staff - Active Staff] - Matt Pagan MD [Primary Care Provider] - Activity Restrictions/Additional Instructions: Please take the prescribed medications as directed to help control your heart rate and prevent blood clot/stroke. Follow-up with your clockmaker apprentice to discuss potential outpatient cardioversion if you do not convert to sinus rhythm on your own and potential electrophysiology referral secondary to recurrent nature of your A-fib. Return to the ER should you have any further concerns Disposition Disposition: Home, Self Care Discharge Date/Time: 05/07/23 04:15
[2023-05-07] MEDS: APIXABAN 5 MG TABLET PO (04:04)
[2023-05-07] MEDS: Metoprolol(XL)Succ 25 MG Tablet PO (04:06)
[2023-05-07 04:14] VITALS: BP 104/86; PULSE 102; RESP 20; TEMP 36.7; O2SAT 99
== END 2023-05-07 04:15 | disposition home or self-care (01) ==
PROVIDERS: Emergency Provider Emergency Medicine; PCP Family Medicine; Visit Provider Emergency Medicine
DX: I48.0 Paroxysmal atrial fibrillation (principal); Z87.891 Personal history of nicotine dependence; Z79.01 Long term (current) use of anticoagulants; Z79.899 Other long term (current) drug therapy
CPT/HCPCS: 80048; 80307; 83735; 84443; 85025; 93005; 96360; 96361; 99284; J7030; A4216

== ENCOUNTER → 2023-05-10 | Outpatient (CLI) | payer OTHER, SELFPAY ==
[2023-05-10 12:29] LABS: Anion Gap 5 (5-15); BUN 12 mg/dL (7-18); BUN/Creat Ratio 11.1 RATIO (10-20); Chloride 108 mmol/L (98-107); Creatinine, Serum 1.08 mg/dL (0.70-1.30); EST Glomerular Filtration Rate 84 mL/min (>60); Est Glom Filt Rate - Afr Amer 102 mL/min (>60); Glucose 85 mg/dL (74-106); Sodium Level 141 mmol/L (136-145)
== END | disposition home or self-care (01) ==
LOC: LAB 09:43
PROVIDERS: PCP Family Medicine; Referring Provider Nurse Practitioner Gerontology; Visit Provider Nurse Practitioner Gerontology
DX: E87.6 Hypokalemia (principal)
CPT/HCPCS: 36415; 80048